=== PATIENT | female | born 1960 | race African-American/Black ===

== ENCOUNTER 2017-11-09 13:08 | Emergency (ER) | payer BC ==
[~2017-11-09] VITALS: Ht 170.2 cm; Wt 85.7 kg
[~2017-11-09 13:08] MED LIST: ASPIR 8181 MG PO; COREG3.125 MG PO; COZAAR50 MG PO; GLUCOTROL10 MG PO; IMDUR30 MG PO
[2017-11-09 16:12] VITALS: BP 160/90
== END 2017-11-09 14:50 | disposition home or self-care (01) ==
LOC: FSED 13:08
DX: B34.9 Viral infection, unspecified (principal); I10 Essential (primary) hypertension
CPT/HCPCS: 83518; 87400; 99283

== ENCOUNTER 2019-04-03 20:12 | Emergency (ER) | payer BC ==
[~2019-04-03] VITALS: Ht 170.2 cm; Wt 85.7 kg
[2019-04-03] MEDS ORDERED: SODIUM CHLORIDE 0.9% 1000ML 3,000 ML ONE (20:32)
[2019-04-03 20:40] LABS: BASOPHILS % 0.5 % (0.0-1.0); EOSINOPHILS # (AUTO) 0.1 (0.0-0.4); EOSINOPHILS % 2.2 % (0.0-6.0); HEMATOCRIT 42.3 % (34.2-44.1); HEMOGLOBIN 13.7 g/dL (12.0-16.0); LYMPHOCYTES # (AUTO) 2.7 (1.0-3.2); MEAN CORPUSCULAR HEMOGLOBIN 29.3 pg (28-32); MEAN CORPUSCULAR HGB CONC 32.4 g/dL (31-35); MEAN CORPUSCULAR VOLUME 90.4 fL (81-99); MONOCYTES # (AUTO) 0.7 (0.2-0.8); MONOCYTES % 10.7 % (4.4-11.3); NEUTROPHILS # (AUTO) 2.8 (2.1-6.9); NEUTROPHILS % 44.3 % (38.7-80.0); PLATELET COUNT 257 x10e3/uL (140-360); RED BLOOD COUNT 4.68 x10e6/uL (3.6-5.1); RED CELL DISTRIBUTION WIDTH 12.1 % (11.7-14.4)
[2019-04-03] MEDS ORDERED: ADENOSINE 6MG/2ML 3 ML ONE (20:40)
[2019-04-03 20:44] LABS: INR 0.91; PARTIAL THROMBOPLASTIN TIME 27.5 seconds (23.8-35.5); PROTHROMBIN TIME 12.8 seconds (11.9-14.5)
[2019-04-03 21:25] LABS: ALANINE AMINOTRANSFERASE 20 IU/L (0-55); ALBUMIN 3.8 g/dL (3.5-5.0); ALBUMIN/GLOBULIN RATIO 1.2 (0.8-2.0); ALKALINE PHOSPHATASE 72 IU/L (40-150); ANION GAP 14.9 mmol/L (8-16); BLOOD UREA NITROGEN 11 mg/dL (7-26); BUN/CREATININE RATIO 11 (6-25); CALCIUM 9.4 mg/dL (8.4-10.2); CARBON DIOXIDE 23 mmol/L (22-29); CHLORIDE 100 mmol/L (98-107); CREATINE KINASE 48 IU/L (29-168); CREATININE, SERUM 1.03 mg/dL (0.57-1.11); EST GLOMERULAR FILTRATION RATE > 60 ML/MIN (60-); POTASSIUM 3.9 mmol/L (3.5-5.1); SODIUM 134 mmol/L (136-145)
[2019-04-03 21:27] LABS: GLUCOSE 561 mg/dL (74-118)
[2019-04-03] MEDS ORDERED: SODIUM CHLORIDE 0.9% 1000ML 1,000 ML IV SCH ×3 (21:45)
[2019-04-03] MEDS ORDERED: ADENOSINE 6 MG/2 ML VIAL IV ONE (21:45)
--- NOTE | 2019-04-03 22:09 | Diagnostic Imaging Report ---
EXAMINATION: CHEST 2 VIEWS INDICATION: Chest pain and palpitations ^CP ^[id number] ^[id number] COMPARISON: None FINDINGS: PA and lateral views TUBES and LINES: None. LUNGS: Lungs are well inflated. There is no evidence of pneumonia or pulmonary edema. PLEURA: No pleural effusion or pneumothorax. HEART AND MEDIASTINUM: The cardiomediastinal silhouette is unremarkable.. BONES AND SOFT TISSUES: No focal osseous lesions. Soft tissues are unremarkable. UPPER ABDOMEN: Unremarkable. IMPRESSION: No acute thoracic abnormality. Signed by: Dr. Catrachito Mondragon MD on 04/03/2019 10:07 PM
[2019-04-03] MEDS ORDERED: DILTIAZEM HCL 5 MG/ML 5 ML VIAL IV STA (23:08)
[2019-04-03 23:35] VITALS: BP 151/90
== END 2019-04-03 23:52 | disposition home or self-care (01) ==
LOC: ER 20:12
DX: R00.2 Palpitations (principal); I48.91 Unspecified atrial fibrillation; I47.1 Supraventricular tachycardia
CPT/HCPCS: 36415; 71046; 80053; 82550; 82553; 82948; 84484; 85025; 85610; 85730; 93005; 99284; J0153; J7030

== ENCOUNTER 2019-10-15 14:04 | Emergency (ER) | payer BC ==
[~2019-10-15] VITALS: Ht 170.2 cm; Wt 76.2 kg
[2019-10-15] MEDS ORDERED: FAMOTIDINE 20 MG/2 ML VIAL IV STA (14:28)
[2019-10-15] MEDS ORDERED: SODIUM CHLORIDE 0.9% 1000ML 1,000 ML IV SCH (14:30)
[2019-10-15] MEDS ORDERED: SODIUM CHLORIDE 0.9% 1000ML 1,000 ML ONE (14:53)
[2019-10-15] MEDS ORDERED: FAMOTIDINE 20 MG/2 ML VIAL IV ONE (14:53)
[2019-10-15] MEDS ORDERED: ZOFRAN4 MG PO (15:26)
--- NOTE | 2019-10-15 15:51 | Emergency Department Note ---
History of Present Illnes History of Present Illness Chief Complaint: Abdominal Complaints History of Present Illness This is a 59 year old female with 2 days of N/V/D. Patient was non compliant with medications, but restarted taking them last week due to feeling "sluggish". No fever/chills. No diarrhea. last BM yest WNL. No hematemesis, melena, hematachezia. No sick contacts. No well water. No recent camping. No recent antibiotics. No cough, decreased taste/smell. Has never been tested for COVID. Admit in [facility] for palpitations and UTI. Botany Technician Required: No Onset (how long ago): day(s) Location: LUQ abd pain, onset after vomiting started and mostly only during emesis Quality: dull Severity: unable to specify Onset quality: gradual Duration (how long): day(s) Timing of current episode: intermittent Context: Denies trauma/injury Relieving factors: none Exacerbating factors: none Associated symptoms: Reports nausea/vomiting; Denies chest pain, Denies cough, Denies diaphoresis, Denies fever/chills, Denies malaise Past Medical/Family History Physician Review I have reviewed the patient's past medical and family history. Any updates have been documented here. Past Medical History Past Medical History: Hypertension, Diabetes, Hyperlipedemia Other Surgery: BREAST BIOPSY Social History Any Illegal Drug Use: No Other Last Tetanus: > 5 YEARS Review of Systems Review of Systems Constitutional: Reports no symptoms EENTM: Reports no symptoms Cardiovascular: Reports no symptoms Respiratory: Denies cough, Denies pain with cough, Denies dyspnea Gastrointestinal: Reports abdominal pain, Reports nausea, Reports vomiting Genitourinary: Reports no symptoms Musculoskeletal: Reports no symptoms Neurological: Reports no symptoms Psychological: Reports no symptoms Endocrine: Reports no symptoms Hematological/Lymphatic: Reports no symptoms Physical Exam Related Data Allergies: Coded Allergies: codeine (Verified Allergy, Unknown, 11/09/17) iodine (Verified Allergy, Unknown, 11/09/17) Physical Exam CONSTITUTIONAL Constitutional: Present well-developed, Present well-nourished HENT HENT: Present normocephalic, Present atraumatic, Present mucosae dry, Present nose normal HENT L/R: Present left ext ear normal, Present right ext ear normal EYES Eyes: Reports PERRL, Reports conjunctivae normal NECK Neck: Present ROM normal PULMONARY Pulmonary: Present effort normal, Present breath sounds normal CARDIOVASCULAR Cardiovascular: Present regular rhythm, Present heart sounds normal, Present capillary refill normal, Present normal rate GASTROINTESTINAL Abdominal: Present soft, Present nontender, Present bowel sounds normal, Present other (No psoas, no illiac, negative Faith's); Absent distension, Absent tender, Absent guarding, Absent rebound, Absent left CVA tenderness, Absent right CVA tenderness GENITOURINARY SKIN Skin: Present warm, Present dry MUSCULOSKELETAL Musculoskeletal: Present ROM normal NEUROLOGICAL Neurological: Present alert, Present oriented x 3, Present no gross motor or sensory deficits PSYCHOLOGICAL Psychological: Present mood/affect normal, Present judgement normal Results Laboratory Laboratory comments WBC 5.8, HGB 13.6, HCT 41.5, PLT 160. CMP: Glu 216, Cl 98 - otherwise normal. Troponin <0.05. UA: Glu 500, small bautista, Ket 50, trace blood, ph 5.5, pro 100, uro 2.0, nit neg, sandy neg Procedures 12 Lead ECG Interpretation ECG Interpretation : ECG: ECG 1 Botany Technician: Interpreted by ED physician Prior ECG tracings: reviewed Rhythm: sinus rhythm Rate: normal BPM: 91 QRS axis: normal Clinical Impression: abnormal ECG Additional Comments PAC's Assessment & Plan Medical Decision Making MDM Differential dx includes, but is not limited to: Gastroenteritis (viral, bacterial, parasite, protozoal), VT/ACS, DKA, appendicitis, gallstone. Sx resolved with IVF and pepcid. Gave strict return precautions and patient will establish PCP for prompt f/u. Reassessment Reassessment time: 15:39 Reassessment Sx resolved. No vomiting in ED. (declined zofran during stay). No abd pain, abd non-tender. Assessment & Plan Final Impression: (1) Volume depletion (2) Dehydration (3) Hypovolemia (4) Nausea & vomiting (5) Diabetes (6) Hypertension (7) Hyperglycemia Depart Disposition: HOME, SELF-[facility] Meds Active Scripts Ondansetron Hcl* (ZOFRAN*) 4 Mg Tablet, 4 MG PO Q6HR PRN for NAUSEA, #10 Prov:NAHUM LEE MD 10/15/19 Reported Medications Aspirin (ASPIR 81) 81 Mg Tablet.dr, 81 MG PO QAM 07/09/13 Losartan Potassium (COZAAR) 50 Mg Tab, 50 MG PO QPM 07/09/13 Glipizide (GLUCOTROL) 10 Mg Tablet, 10 MG PO QAM 07/09/13 Isosorbide Mononitrate (IMDUR) 30 Mg Tabcr, 30 MG PO QAM 07/09/13 Carvedilol (COREG) 3.125 Mg Tab, 3.125 MG PO BID 07/09/13 Medications in the ED HOWARD Rowe RICHARD W MD Oct 15, 2019 14:38
[2019-10-15 16:09] VITALS: BP 131/74
--- OUTSIDE RECORDS SUMMARY | 2019-10-15 16:33 | XMS REPORT | Continuity of Care Document ---
Author Author [facility] t Organization [facility] Address [address] [place] [address] Phone Unavailable Care Team Providers Care Black Leather Trimmer Name Role Phone NO, PCP PCP Unavailable DARREN STOREY Unavailable Payers Payer Name Policy Type Policy Number Effective Date Expiration Date S neri [employer] [facility] [id number] 2017 00:00:00 [facility] Problems This patient has no known problems. Allergies, Adverse Reactions, Alerts Allergy Name Allergy Type Status Severity Reaction(s) Onset Date Inacti ve Date Treating Clinician Comments Source iodine Allergy to Substance Active 2017-11-09 00:00:00 [facility] Codeine Allergy to Substance Active 2017-11-09 00:00:00 [facility] iodine DA Active U 2008-09-08 00:00:00 [facility] codeine DA Active U 2008-09-08 00:00:00 [facility] Medications Ordered Medication Name Filled Medication Name Start Date Stop Da te Current Medication? Ordering Clinician Indication Dosage Frequency Signature (SIG) Comments Components Source Aspirin (Aspir 81) 81 Mg Tablet. Aspirin (Aspir 81) 81 Mg Tablet. Yes 81 Every Morning [facility] Carvedilol (Coreg) 3.125 Mg Tab Carvedilol (Coreg) 3.125 Mg Tab Yes 3.125 Twice A Day [facility] Glipizide (Glucotrol) 10 Mg Tablet Glipizide (Glucotrol) 10 Mg Tablet Yes 10 Every Morning [facility] Isosorbide Mononitrate (Imdur) 30 Mg Tabcr Isosorbide Mononitrate (Imdur) 30 Mg Tabcr Yes 30 Every Morning [facility] Losartan Potassium (Cozaar) 50 Mg Tab Losartan Potassium (Cozaar) 5 0 Mg Tab Yes 50 Every Evening [facility] Procedures Procedure Date / Time Performed Performing Clinician [facility] e X-ray of chest, two views 2019-04-03 00:00:00 DARREN STOREY I [facility] Encounters Start Date/Time End Date/Time Encounter Type Admission Type [facility] Care Department Encounter ID Source 2019-04-03 20:12:00 2019-04-03 23:52:00 Departed Emergency Room 1 DARREN STOREY [facility] [id number] [facility] 2017-11-09 13:08:00 2017-11-09 14:50:00 Departed Emergency Room [facility] [id number] [facility] Results Test Description Test Time Test Comments Results Result Comments Source GLUBED 2019-08-03 11:43:00 Test Item GLUBED (test code = GLUBED) 184 mg/dL 74-106 H Performed by certified telephone switchboard operator at [facility] [id number] 07:26:00* Test Item Value Reference Range Interpretation Comments GLUBED (test code = GLUBED) 130 mg/dL 74-106 H Performed by certified telephone switchboard operator at [facility] [id number] 21:09:00* Test Item Value Reference Range Interpretation Comments GLUBED (test code = GLUBED) 231 mg/dL 74-106 H Performed by certified telephone switchboard operator at [facility] [id number] 15:58:00* Test Item Value Reference Range Interpretation Comments GLUBED (test code = GLUBED) 269 mg/dL 74-106 H Performed by certified telephone switchboard operator at [facility] [id number] 14:23:00* Test Item Value Reference Range Interpretation Comments GLYCOSYLATED HEMOGLOBIN (HA1C) (test code = GLYHGB) 12.8 % HbA1 SUGGESTED DIAGNOSIS: HbA1C (%) Diabetic >6.4Prediabetes 5.7 - 6.4Normal <5.7 ESTIMATED AVERAGE GLUCOSE (test code = EAG) 321 MG/DL THYROID STIMULATING [id number] 14:18:00* Test Item Value Reference Range Interpretation Comments THYROID STIMULATING HORMONE (test code = TSH) 0.890 uIU/mL 0.36-3.7 4 N TSH REFERENCE RANGES: EUTHYROID: 0.35 - 4.3 mIU/mL HYPO : > 5.5 mIU/mL HYPER : < 0.35 mIU/mL [id number] 13:15:00* Test Item Value Reference Range Interpretation Comments TROPONIN-I (test code = TROPI) 0.122 ng/mL 0-0.045 COMMENTS TO ETL ARCHITECT: COLLECT 3 HOURS AFTER PREVIOUS [id number] 11:54:00* Test Item Value Reference Range Interpretation Comments GLUBED (test code = GLUBED) 207 mg/dL 74-106 H Performed by certified telephone switchboard operator at [facility] [id number] 09:58:00* Test Item Value Reference Range Interpretation Comments TROPONIN-I (test code = TROPI) 0.150 ng/mL 0-0.045 HH COMMENTS TO ETL ARCHITECT: COLLECT 3 HOURS AFTER PREVIOUS SAMPLEBASIC METABOLIC [id number] 09:57:00* Test Item Value Reference Range Interpretation Comments SODIUM (test code = NA) 138 mmol/L 136-145 N POTASSIUM (test code = K) 3.8 mmol/L 3.5-5.1 N CHLORIDE (test code = CL) 105.0 mmol/L 98-107 N CARBON DIOXIDE (test code = CO2) 27.0 mmol/L 21-32 N ANION GAP (test code = GAP) 9.8 10-20 L GLUCOSE (test code = GLU) 231 mg/dL 74-106 H BLOOD UREA NITROGEN (test code = BUN) 15 mg/dL 7-18 N GLOMERULAR FILTRATION RATE (test code = GFR) > 60 mL/min >=60 Estimated GFR by using Modified MDRD formula.Chronic kidney disease is defined as either kidney damageor GFR <60 mL/min/1.73 m2 for >3 months. CREATININE (test code = CREAT) 0.60 mg/dL 0.55-1.02 N Note change in reference range due to change in reagent. BUN/CREATININE RATIO (test code = BUN/CREA) 25.0 10-20 H CALCIUM (test code = CA) 8.6 mg/dL 8.5-10.1 N LIPID PROFILE (CORONARY RISK)2019-08-02 09:57:00* Test Item Value Reference Range Interpretation Comments TRIGLYCERIDES (test code = TRIG) 80 mg/dL 20-150 N CHOLESTEROL (test code = CHOL) 136 mg/dL 0-200 N CHOLESTEROL/HDL RATIO (test code = CHOLHDL) 3.0 RATIO 0-4.9 N RISK ASSOCIATED WITH CHOL/HDL RATIOS: Risk Male Female1/2 AVERAGE 3.43 3.27AVERAGE 4.97 4.442X AVERAGE 9.55 7.053X AVERAGE 23.39 11.04 REFERENCE VALUE IS RELATED TO RISK LEVELS ASRECOMMENDED BY THE HUONG. HEART, LUNG, AND BLOOD INST. HDL CHOLESTEROL (test code = HDL) 37 mg/dL 40-60 L LIPOPROTEIN LDL (test code = LDL) 90 mg/dL 100-129 L Reference Interval: mg/dL mmol/L Optimal <100 <2.6Near/above optimal 100-129 2.6- 3.3Borderline High 130-159 3.4-4.1High 160-189 4.1-4.9Very High >=190 >=4.9========= This LDL result is a direct measurement.========= [id number] 09:57:00* Test Item Value Reference Range Interpretation Comments MAGNESIUM (test code = MAG) 1.9 mg/dL 1.8-2.4 N BASIC METABOLIC [id number] 09:49:00* Test Item Value Reference Range Interpretation Comments SODIUM (test code = NA) 138 mmol/L 136-145 N POTASSIUM (test code = K) 3.8 mmol/L 3.5-5.1 N CHLORIDE (test code = CL) 105.0 mmol/L 98-107 N CARBON DIOXIDE (test code = CO2) mmol/L 21-32 ANION GAP (test code = GAP) 10-20 GLUCOSE (test code = GLU) mg/dL 74-106 BLOOD UREA NITROGEN (test code = BUN) mg/dL 7-18 GLOMERULAR FILTRATION RATE (test code = GFR) mL/min >=60 CREATININE (test code = CREAT) mg/dL 0.55-1.02 BUN/CREATININE RATIO (test code = BUN/CREA) 10-20 CALCIUM (test code = CA) mg/dL 8.5-10.1 LIPID PROFILE (CORONARY RISK)2019-08-02 09:49:00* Test Item Value Reference Range Interpretation Comments TRIGLYCERIDES (test code = TRIG) mg/dL 20-150 CHOLESTEROL (test code = CHOL) mg/dL 0-200 CHOLESTEROL/HDL RATIO (test code = CHOLHDL) RATIO 0-4.9 HDL CHOLESTEROL (test code = HDL) mg/dL 40-60 LIPOPROTEIN LDL (test code = LDL) mg/dL 100-129 [id number] 09:49:00* Test Item Value Reference Range Interpretation Comments MAGNESIUM (test code = MAG) mg/dL 1.8-2.4 CBC W/AUTO [id number] 09:21:00* Test Item Value Reference Range Interpretation Comments WHITE BLOOD CELL (test code = WBC) 5.6 K/mm3 4.5-12.5 N RED BLOOD CELL (test code = RBC) 4.24 mill/mm3 3.7-5.2 N HEMOGLOBIN (test code = HGB) 12.6 gram/dL 11.5-15.5 N HEMATOCRIT (test code = HCT) 37.6 % 36.0-46.0 N MEAN CELL VOLUME (test code = MCV) 88.7 fL 80-98 N MEAN CELL HGB (test code = MCH) 29.7 picogram 27.0-33.0 N MEAN CELL HGB CONCETRATION (test code = MCHC) 33.5 gram/dL 33.0-36. 0 N RED CELL DISTRIBUTION WIDTH (test code = RDW) 11.9 % 11.6-16. 2 N RED CELL DISTRIBUTION WIDTH SD (test code = RDW-SD) 38.2 fL 37 .0-51.0 N PLATELET COUNT (test code = PLT) 207 K/mm3 150-450 N MEAN PLATELET VOLUME (test code = MPV) 11.4 fL 6.7-11.0 H NEUTROPHIL % (test code = NT%) 40.4 % 39.0-69.0 N IMMATURE GRANULOCYTE % (test code = IG%) 0.2 % 0.0-5.0 N LYMPHOCYTE % (test code = LY%) 46.0 % 25.0-55.0 N MONOCYTE % (test code = MO%) 11.2 % 0.0-10.0 H EOSINOPHIL % (test code = EO%) 1.8 % 0.0-5.0 N BASOPHIL % (test code = BA%) 0.4 % 0.0-1.0 N NUCLEATED RBC % (test code = NRBC%) 0.0 % 0-0 N NEUTROPHIL # (test code = NT#) 2.28 K/mm3 1.8-7.7 N IMMATURE GRANULOCYTE # (test code = IG#) 0.01 x10 3/uL 0-0.03 N LYMPHOCYTE # (test code = LY#) 2.59 K/mm3 1.0-5.0 N MONOCYTE # (test code = MO#) 0.63 K/mm3 0-0.8 N EOSINOPHIL # (test code = EO#) 0.10 K/mm3 0.0-0.5 N BASOPHIL # (test code = BA#) 0.02 K/mm3 0.0-0.2 N NUCLEATED RBC # (test code = NRBC#) 0.00 K/mm3 0.0-0.1 N DRUGS OF ABUSE SCREEN [id number] 07:53:00* Test Item Value Reference Range Interpretation Comments UA PH DIPSTICK (test code = EDI) 5.5 5.0-8.0 URN COCAINE (test code = COCAURN) NEGATIVE <300 ng/mL URN CANNABINOIDS (test code = CANNABURN) NEGATIVE <50 ng/mL URN AMPHETAMINE (test code = AMPHETURN) NEGATIVE <1000 ng/mL URN BARBITURATE (test code = BARBITURN) NEGATIVE <200 ng/mL URN BENZODIAZEPINE (test code = BENZOURN) NEGATIVE <200 ng/mL URN OPIATES (test code = OPIATURN) NEGATIVE <300 ng/mL URN PHENCYCLIDINE (PCP) (test code = PHENCURN) NEGATIVE <25 ng/ mL URN METHADONE (test code = METHAURN) NEGATIVE <300 ng/mL DRUGS OF ABUSE SCREEN [id number] 07:06:00* Test Item Value Reference Range Interpretation Comments UA PH DIPSTICK (test code = EDI) 5.5 5.0-8.0 URN COCAINE (test code = COCAURN) <300 ng/mL URN CANNABINOIDS (test code = CANNABURN) <50 ng/mL URN AMPHETAMINE (test code = AMPHETURN) <1000 ng/mL URN BARBITURATE (test code = BARBITURN) <200 ng/mL URN BENZODIAZEPINE (test code = BENZOURN) <200 ng/mL URN OPIATES (test code = OPIATURN) <300 ng/mL URN PHENCYCLIDINE (PCP) (test code = PHENCURN) <25 ng/ mL URN METHADONE (test code = METHAURN) <300 ng/mL [id number] 05:26:00* Test Item Value Reference Range Interpretation Comments GLUBED (test code = GLUBED) 267 mg/dL 74-106 H Performed by certified telephone switchboard operator at [facility] HEPATIC FUNCTION [id number] 01:53:00* Test Item Value Reference Range Interpretation Comments TOTAL PROTEIN (test code = PROT) 7.5 gram/dL 6.4-8.2 N ALBUMIN (test code = ALB) 3.3 g/dL 3.4-5.0 L GLOBULIN (test code = GLOB) 4.2 gram/dL 2.7-4.2 N ALBUMIN/GLOBULIN RATIO (test code = A/G) 0.8 0.75-1.50 N BILIRUBIN TOTAL (test code = BILT) 0.40 mg/dL 0.0-1.0 N BILIRUBIN DIRECT (test code = BILD) 0.16 mg/dL 0.0-0.20 N SGOT/AST (test code = AST) 16 IUnit/L 15-37 N SGPT/ALT (test code = ALT) 28 IUnit/L 12-78 N ALKALINE PHOSPHATASE TOTAL (test code = ALKP) 63 IUnit/L 45-117 N Note change in reference range due to change in reagent. [id number] 01:53:00* Test Item Value Reference Range Interpretation Comments MAGNESIUM (test code = MAG) 1.9 mg/dL 1.8-2.4 N TSH REFLEX TO [id number] 01:53:00* Test Item Value Reference Range Interpretation Comments TSH REFLEX TO FT4 (test code = TSHREFLEX) 0.4 0.4-5.5 N PROTHROMBIN [id number] 01:18:00* Test Item Value Reference Range Interpretation Comments PROTHROMBIN TIME PATIENT (test code = PTP) 12.3 seconds 9.0-14.0 N INTERNATIONAL NORMAL RATIO (test code = INR) 1.1 0.8-1.2 N The therapeutic range for oral anticoagulant therapy formost indications is an international normalized ratio (INR)of between 2.0 and 3.0. The recommended therapeutic INRrange for various clinical situations is listed below: Clinical Situation INR range Pulmonary e mbolism treatment (2.0-3.0)Venous thrombosis treatmentVenous thrombosis prophylaxis (high risk surgery)Prevention of systemic embolism from: Acute myocardial infarction Valvular heart disease Atrial fibrillation Mechanical prosthetic heart valves (2.5-3.5) IS PATIENT ON ANTICOAGULANTS? NTHROMBOPLASTIN TIME [id number] 01:18:00* Test Item Value Reference Range Interpretation Comments THROMBOPLASTIN TIME PARTIAL (test code = PTT) 26.7 seconds 23.0-37. 0 N IS PATIENT ON ANTICOAGULANTS? [id number] 01:17:00* Test Item Value Reference Range Interpretation Comments GLYCOSYLATED HEMOGLOBIN (HA1C) (test code = GLYHGB) 12.3 % HbA1 SUGGESTED DIAGNOSIS: HbA1C (%) Diabetic >6.4Prediabetes 5.7 - 6.4Normal <5.7 ESTIMATED AVERAGE GLUCOSE (test code = EAG) 306 MG/DL BASIC METABOLIC [id number] 21:24:00* Test Item Value Reference Range Interpretation Comments SODIUM (test code = NA) 138 mmol/L 136-145 N POTASSIUM (test code = K) 4.0 mmol/L 3.5-5.1 N CHLORIDE (test code = CL) 106.0 mmol/L 98-107 N CARBON DIOXIDE (test code = CO2) 28.0 mmol/L 21-32 N ANION GAP (test code = GAP) 8.0 10-20 L GLUCOSE (test code = GLU) 293 mg/dL 74-106 H BLOOD UREA NITROGEN (test code = BUN) 19 mg/dL 7-18 H GLOMERULAR FILTRATION RATE (test code = GFR) > 60 mL/min >=60 Estimated GFR by using Modified MDRD formula.Chronic kidney disease is defined as either kidney damageor GFR <60 mL/min/1.73 m2 for >3 months. CREATININE (test code = CREAT) 0.80 mg/dL 0.55-1.02 N Note change in reference range due to change in reagent. BUN/CREATININE RATIO (test code = BUN/CREA) 24.2 10-20 H CALCIUM (test code = CA) 8.9 mg/dL 8.5-10.1 N [id number] 21:24:00* Test Item Value Reference Range Interpretation Comments TROPONIN-I (test code = TROPI) 0.112 ng/mL 0-0.045 Results called to [id number] by [email or web address].SPR 08/01/19 2124Critical results verified and read back by Nurse? Y BASIC METABOLIC [id number] 21:09:00* Test Item Value Reference Range Interpretation Comments SODIUM (test code = NA) 138 mmol/L 136-145 N POTASSIUM (test code = K) 4.0 mmol/L 3.5-5.1 N CHLORIDE (test code = CL) 106.0 mmol/L 98-107 N CARBON DIOXIDE (test code = CO2) mmol/L 21-32 ANION GAP (test code = GAP) 10-20 GLUCOSE (test code = GLU) mg/dL 74-106 BLOOD UREA NITROGEN (test code = BUN) mg/dL 7-18 GLOMERULAR FILTRATION RATE (test code = GFR) mL/min >=60 CREATININE (test code = CREAT) mg/dL 0.55-1.02 BUN/CREATININE RATIO (test code = BUN/CREA) 10-20 CALCIUM (test code = CA) 8.9 mg/dL 8.5-10.1 N [id number] 21:09:00* Test Item Value Reference Range Interpretation Comments TROPONIN-I (test code = TROPI) ng/mL 0-0.045 URINALYSIS [id number] 21:09:00* Test Item Value Reference Range Interpretation Comments UA COLOR (test code = COLU) Light-Yellow YELLOW UA APPEARANCE (test code = APPU) Cloudy CLEAR A UA GLUCOSE DIPSTICK (test code = DGLUU) >1000 (4+) mg/dL NEGATIVE UA BILIRUBIN DIPSTICK (test code = BILU) NEGATIVE mg/dL NEGATIVE UA KETONE DIPSTICK (test code = KETU) 40 (2+) mg/dL NEGATIVE A UA SPECIFIC GRAVITY (test code = SGU) 1.034 1.001-1.035 UA BLOOD DIPSTICK (test code = AZALEA) Negative mg/dL NEGATIVE UA PH DIPSTICK (test code = EDI) 5.5 5.0-8.0 UA PROTEIN DIPSTICK (test code = PROU) 20 (Trace) mg/dL NEGATIVE A UA UROBILINIOGEN DIPSTICK (test code = URO) Normal mg/dL NEGATIVE UA NITRITE DIPSTICK (test code = MAYRA) NEGATIVE NEGATIVE UA LEUKOCYTE ESTERASE W REFLEX (test code = LEUUR) 75 Gordon/uL (1+) Gordon/uL NEGATIVE A UA WBC (test code = WBCU) 51-100 per HPF 0-5 A UA RBC (test code = RBCU) 3-5 #/HPF 0-5 UA WBC CLUMPS (test code = WBCUCL) 3-6 /HPF NONE A UA EPITHELIAL CELLS (test code = EPIU) MOD per HPF FEW UA BACTERIA (test code = BACU) MANY #/HPF NONE A UA MUCUS (test code = MUCU) FEW #/LPF FEW UA AMORPHOUS SEDIMENT (test code = AMORU) FEW #/LPF NONE Urine Source? Clean CatchBASIC METABOLIC [id number] 21:08:00* Test Item Value Reference Range Interpretation Comments SODIUM (test code = NA) 138 mmol/L 136-145 N POTASSIUM (test code = K) 4.0 mmol/L 3.5-5.1 N CHLORIDE (test code = CL) 106.0 mmol/L 98-107 N CARBON DIOXIDE (test code = CO2) mmol/L 21-32 ANION GAP (test code = GAP) 10-20 GLUCOSE (test code = GLU) mg/dL 74-106 BLOOD UREA NITROGEN (test code = BUN) mg/dL 7-18 GLOMERULAR FILTRATION RATE (test code = GFR) mL/min >=60 CREATININE (test code = CREAT) mg/dL 0.55-1.02 BUN/CREATININE RATIO (test code = BUN/CREA) 10-20 CALCIUM (test code = CA) mg/dL 8.5-10.1 [id number] 21:08:00* Test Item Value Reference Range Interpretation Comments TROPONIN-I (test code = TROPI) ng/mL 0-0.045 CBC W/O [id number] 20:52:00* Test Item Value Reference Range Interpretation Comments WHITE BLOOD CELL (test code = WBC) 6.8 K/mm3 4.5-12.5 N RED BLOOD CELL (test code = RBC) 4.47 mill/mm3 3.7-5.2 N HEMOGLOBIN (test code = HGB) 13.5 gram/dL 11.5-15.5 N HEMATOCRIT (test code = HCT) 40.7 % 36.0-46.0 N MEAN CELL VOLUME (test code = MCV) 91.1 fL 80-98 N MEAN CELL HGB (test code = MCH) 30.2 picogram 27.0-33.0 N MEAN CELL HGB CONCETRATION (test code = MCHC) 33.2 gram/dL 33.0-36. 0 N RED CELL DISTRIBUTION WIDTH (test code = RDW) 12.1 % 11.6-16. 2 N PLATELET COUNT (test code = PLT) 233 K/mm3 150-450 N MEAN PLATELET VOLUME (test code = MPV) 11.5 fL 6.7-11.0 H - XR CHEST 1 [id number] 18:39:00 FAX: Eduardo Johnson DO [place]: B St: REG Name: BAILEE GODINEZ [facility] : [birth year] Age/S: 59/F [address] Unit #: [id number] Loc: [place] [address] Phys: Eduardo Johnson DO Acct: [id number] Dis Date: Status: REG ER PHONE #: [phone] Exam Date: 08/01/20191826 FAX #: [phone] Reason: CHEST PAIN EXAMS: CPT CODE: [id number] XR CHEST 1 V [id number] EXAM: Chest X-ray, 1 view; CLINICAL HISTORY: Chest pain; FINDINGS: The lungs are clear, no infiltrates, no edema; no effusions; no pneumothorax; n ormal cardiomediastinal silhouette. IMPRESSION: Normal chest x-ray. Location code: [facility] Signed by Azra Maier on 08/01/2019 pat gunter 1838 Reported and signed by: Felipe Alexis ch, M.D. CC: Eduardo Johnson DO Technologist: Ángela Tobar) Trnscrd Date/Time/By: 08/01/2019 (1838) : By: Skyler Orig Print D/T: S: 08/01/2019 (1841) PAGE 1 Signed Report CHEST 2 [id number] 22:04:00 [place] [id number] Patient Name: BAILEE MARCUM MR #: [id number] : 1960 Age/Sex: 59/F Req #: [id number] Adm Physician: Ordered by: DARREN STOREY DO Report #: [id number] Location: ER Room/Bed: Procedure: [id number] 2 DX/CHEST 2 VIEWS Exam Date: 04/03/19 Exam Time: 45 REPORT STATUS: Signed EXAMINA TION: CHEST 2 VIEWS INDICATION: Chest pain and palpitations [id number] COMPARISON: None FINDINGS: PA and lateral view s TUBES and LINES: None. LUNGS: Lungs are well inflated. There is n o evidence of pneumonia or pulmonary edema. PLEURA: No pleural effusion or pneumothorax. HEART AND MEDIASTINUM: The cardiomediastinal silhouette i s unremarkable.. BONES AND SOFT TISSUES: No focal osseous lesions. Sof t tissues are unremarkable. UPPER ABDOMEN: Unremarkable. IMPRESSION : No acute thoracic abnormality. Signed by: Dr. Nessa Mondragon MD on 04/03/2019 10:07 PM Dictated By: NESSA MONDRAGON MD 06 Transcribed By: ALIN on 2206 COPY TO: DARREN STOREY DO Creatine Kinase MB 2019-04-03 21:32:00* Test Item Value Reference Range Interpretation Comments Creatine Kinase MB (test code = 81391-7) 0.90 0-5.0 [facility] [id number] 21:32:00* Test Item Value Reference Range Interpretation Comments Troponin I (test code = UVJ2544) < 0.001 0-0.300 [facility] [id number] 21:27:00* Test Item Value Reference Range Interpretation Comments Sodium Level (test code = 2951-2) 134 136-145 L [facility]Potassium [id number] 21:27:00* Test Item Value Reference Range Interpretation Comments Potassium Level (test code = 2823-3) 3.9 3.5-5.1 [facility] TexasChloride [id number] 21:27:00* Test Item Value Reference Range Interpretation Comments Chloride Level (test code = 2075-0) 100 98-107 [facility] TexasCarbon Dioxide [id number] 21:27:00* Test Item Value Reference Range Interpretation Comments Carbon Dioxide Level (test code = 2028-9) 23 22-29 [facility] TexasAnion [id number] 21:27:00* Test Item Value Reference Range Interpretation Comments Anion Gap (test code = 93222-6) 14.9 8-16 [facility] TexasBlood Urea [id number] 21:27:00* Test Item Value Reference Range Interpretation Comments Blood Urea Nitrogen (test code = 3094-0) 11 7-26 [facility] TexasCreatinine2020-02-18 21:27:00* Test Item Value Reference Range Interpretation Comments Creatinine (test code = 2160-0) 1.03 0.57-1.11 [facility] TexasBUN/Creatinine [id number] 21:27:00* Test Item Value Reference Range Interpretation Comments BUN/Creatinine Ratio (test code = 3097-3) 11 6-25 [facility] TexasEstimat Glomerular Filtration Rate 2019-04-03 21:27:00* Test Item Value Reference Range Interpretation Comments Estimat Glomerular Filtration Rate (test code = 196599794) > 60 >60 Ranges were taken from the National Kidney Disease Education Program and the [facility] [employer] literature.Reference ranges:60 or greater: Ikepis60-37 ( for 3 consecutive months): Chronic kidney disease 15 or less: Kidney failureBaptist Hospitals of Southeast TexasGlucose [id number] 21:27:00* Test Item Value Reference Range Interpretation Comments Glucose Level (test code = JCI3877) 561 74-118 Results repeated and called to at 2126 on 04/03/19 by Susan Bennett. Read b ack and verified.[facility] TexasCalcium [id number] 21:27:00* Test Item Value Reference Range Interpretation Comments Calcium Level (test code = 11940-7) 9.4 8.4-10.2 [facility] TexasTotal [id number] 21:27:00* Test Item Value Reference Range Interpretation Comments Total Bilirubin (test code = 1975-2) 0.3 0.2-1.2 [facility] TexasAspartate Amino Transf (AST/SGOT) 2019-04-03 21:27:00* Test Item Value Reference Range Interpretation Comments Aspartate Amino Transf (AST/SGOT) (test code = Aspartate Amino Transf (AST/SGOT)) 15 5-34 [facility] TexasAlanine Aminotransferase (ALT/SGPT) 2019-04-03 21:27:00* Test Item Value Reference Range Interpretation Comments Alanine Aminotransferase (ALT/SGPT) (test code = 1742-6) 20 0-55 [facility] [id number] 21:27:00* Test Item Value Reference Range Interpretation Comments Total Protein (test code = 2885-2) 7.0 6.5-8.1 [facility] TexasAlbumin2020-02-18 21:27:00* Test Item Value Reference Range Interpretation Comments Albumin (test code = 1751-7) 3.8 3.5-5.0 [facility] TexasGlobulin2020-02-18 21:27:00* Test Item Value Reference Range Interpretation Comments Globulin (test code = 34174-7) 3.2 2.3-3.5 [facility] TexasAlbumin/Globulin [id number] 21:27:00 * Test Item Value Reference Range Interpretation Comments Albumin/Globulin Ratio (test code = 1759-0) 1.2 0.8-2.0 [facility] TexasAlkaline [id number] 21:27:00* Test Item Value Reference Range Interpretation Comments Alkaline Phosphatase (test code = 6768-6) 72 40-150 [facility] [place]Creatine Kgdlfr3932-14-99 21:27:00* Test Item Value Reference Range Interpretation Comments Creatine Kinase (test code = 2157-6) 48 29-168 [facility] [place]White Blood [id number] 20:45:00* Test Item Value Reference Range Interpretation Comments White Blood Count (test code = 6690-2) 6.34 4.8-10.8 [facility] [place]Red Blood Eehcn8882-21-01 20:45:00* Test Item Value Reference Range Interpretation Comments Red Blood Count (test code = 789-8) 4.68 3.6-5.1 [facility] [place]Hemoglobin2020-02[facility] 20:45:00* Test Item Value Reference Range Interpretation Comments Hemoglobin (test code = 60475-5) 13.7 12.0-16.0 [facility] [place]Hematocrit2020-02-18 20:45:00* Test Item Value Reference Range Interpretation Comments Hematocrit (test code = 4544-3) 42.3 34.2-44.1 [facility] [place]Mean Corpuscular Rfggpr1519-43-38 20:45:00* Test Item Value Reference Range Interpretation Comments Mean Corpuscular Volume (test code = 787-2) 90.4 81-99 [facility]Mean Corpuscular [id number] 20:45:00* Test Item Value Reference Range Interpretation Comments Mean Corpuscular Hemoglobin (test code = 785-6) 29.3 28-32 [facility]Mean Corpuscular Hemoglobin Concent 2019-04-03 20:45:00* Test Item Value Reference Range Interpretation Comments Mean Corpuscular Hemoglobin Concent (test code = 786-4) 32.4 31-35 [facility] [place]Red Cell Distribution [id number] 20:45:00* Test Item Value Reference Range Interpretation Comments Red Cell Distribution Width (test code = 04192-7) 12.1 11.7 -14.4 [facility] TexasPlatelet [id number] 20:45:00* Test Item Value Reference Range Interpretation Comments Platelet Count (test code = 777-3) 257 140-360 [facility] TexasNeutrophils (%) (Auto)2019-04-03 20:45:00 * Test Item Value Reference Range Interpretation Comments Neutrophils (%) (Auto) (test code = 79689-6) 44.3 38.7-80.0 [facility] TexasLymphocytes (%) (Auto)2019-04-03 20:45:00 * Test Item Value Reference Range Interpretation Comments Lymphocytes (%) (Auto) (test code = 736-9) 42.0 18.0-39.1 H [facility] TexasMonocytes (%) (Auto)2019-04-03 20:45:00* Test Item Value Reference Range Interpretation Comments Monocytes (%) (Auto) (test code = 5905-5) 10.7 4.4-11.3 [facility]Eosinophils (%) (Auto)2019-04-03 20:45:00 * Test Item Value Reference Range Interpretation Comments Eosinophils (%) (Auto) (test code = 713-8) 2.2 0.0-6.0 [facility] [place]Basophils (%) (Auto)2019-04-03 20:45:00* Test Item Value Reference Range Interpretation Comments Basophils (%) (Auto) (test code = 706-2) 0.5 0.0-1.0 [facility] TexasIM GRANULOCYTES %2019-04-03 20:45:00* Test Item Value Reference Range Interpretation Comments IM GRANULOCYTES % (test code = IM GRANULOCYTES %) 0.3 0.0- 1.0 [facility] TexasNeutrophils # (Auto)2019-04-03 20:45:00* Test Item Value Reference Range Interpretation Comments Neutrophils # (Auto) (test code = 751-8) 2.8 2.1-6.9 [facility] TexasLymphocytes # (Auto)2019-04-03 20:45:00* Test Item Value Reference Range Interpretation Comments Lymphocytes # (Auto) (test code = 51147-2) 2.7 1.0-3.2 [facility] [place]Monocytes # (Auto)2019-04-03 20:45:00* Test Item Value Reference Range Interpretation Comments Monocytes # (Auto) (test code = 742-7) 0.7 0.2-0.8 [facility] [place]Eosinophils # (Auto)2019-04-03 20:45:00* Test Item Value Reference Range Interpretation Comments Eosinophils # (Auto) (test code = 711-2) 0.1 0.0-0.4 [facility] [place]Basophils # (Auto)2019-04-03 20:45:00* Test Item Value Reference Range Interpretation Comments Basophils # (Auto) (test code = 704-7) 0.0 0.0-0.1 [facility] TexasAbsolute Immature Granulocyte (auto 2019-04-03 20:45:00* Test Item Value Reference Range Interpretation Comments Absolute Immature Granulocyte (auto (marly t code = Absolute Immature Granulocyte (auto) 0.02 0-0.1 [facility] TexasProthrombin [id number] 20:45:00* Test Item Value Reference Range Interpretation Comments Prothrombin Time (test code = 5902-2) 12.8 11.9-14.5 [facility] TexasProthromb Time International Ratio 2019-04-03 20:45:00* Test Item Value Reference Range Interpretation Comments Prothromb Time International Ratio (test code = 6301-6) 0.91 Oral Anticoagulant Therapy INR Values:1. Low Intensity Therapy 1.5 - 2.02 . Moderate Intensity Therapy 2.0 - 3.03. High Intensity Therapy(1) 2.5 - 3. 54. High Intensity Therapy(2) 3.0 - 4.05. Panic Value INR > 5.0 [facility] TexasActivated Partial Thromboplast Time 2019-04-03 20:45:00* Test Item Value Reference Range Interpretation Comments Activated Partial Thromboplast Time (test code = 17838-6) 27.5 23.8-35.[address] [place] [address]
== END 2019-10-15 16:09 | disposition home or self-care (01) ==
LOC: FSED 14:35
DX: E11.65 Type 2 diabetes mellitus with hyperglycemia (principal); R11.2 Nausea with vomiting, unspecified; E86.0 Dehydration; I10 Essential (primary) hypertension; R94.31 Abnormal electrocardiogram [ECG] [EKG]
CPT/HCPCS: 80048; 80076; 81003; 82553; 84484; 85025; 93005; 96374; 99284; J7030

== ENCOUNTER 2019-10-18 14:01 | Inpatient (IN) | payer BC ==
[~2019-10-18] VITALS: Ht 170.2 cm; Wt 76.2 kg
[~2019-10-18 14:01] MED LIST changes: +ZOFRAN4 MG PO
--- OUTSIDE RECORDS SUMMARY | 2019-10-18 14:49 | XMS REPORT | Continuity of Care Document ---
Author Author [facility] t Organization [facility] Address [address] [place] [address] Phone Unavailable Care Team Providers Care Bleach Supervisor Name Role Phone NO, PCP PCP Unavailable DARREN STOREY [place] Unavailable Payers Payer Name Policy Type Policy Number Effective Date [facility] Date [id number] 2019 00:00[facility]00 [facility] Problems Condition Name Condition Details Condition Category Status Onset Date Resolution Date Last Treatment Date Treating Clinician Comments Source Hypovolemia Problem Active [facility] Dehydration Problem Active [facility] Nausea and vomiting Problem Active [facility] Hyperglycemia Problem Active I [facility] Hypertension Problem Active [facility] Diabetes mellitus Problem Active [facility] Allergies, Adverse Reactions, Alerts Allergy Name Allergy Type Status Severity Reaction(s) Onset Date Inacti ve Date Treating Clinician Comments Source iodine Allergy to substance Active 2017-11-09 00:00:00 [facility] Codeine Allergy to substance Active 2017-11-09 00:00:00 [facility] iodine DA Active U 2008-09-08 00:00:00 [facility] codeine DA Active U 2008-09-08 00:00:00 [facility] Social History Social Habit Start Date Stop Date Quantity Comments Source Sex Assigned At 1960 00:00:00 1960 00:00:00 Female [facility] Medications Ordered Medication Name Filled Medication Name Start Date Stop Da te Current Medication? Ordering Clinician Indication Dosage Frequency Signature (SIG) Comments Components Source Ondansetron Hcl (Zofran*) 4 Mg TABLET Ondansetron Hcl (Zofra n*) 4 Mg TABLET 2019-10-15 15:26:00 Yes 4 Every 6 Hours as n eeded for Nausea [facility] Aspirin (Aspir 81) 81 Mg TABLET. Aspirin (Aspir 81) 81 Mg TABLET. Yes 81 Every Morning [facility] Carvedilol (Coreg) 3.125 Mg TAB Carvedilol (Coreg) 3.125 Mg TAB Yes 3.125 Twice A Day [facility] Glipizide (Glucotrol) 10 Mg TABLET Glipizide (Glucotrol) 10 Mg TABLET Yes 10 Every Morning [facility] Isosorbide Mononitrate (Imdur) 30 Mg TABCR Isosorbide Mononitrate (Imdur) 30 Mg TABCR Yes 30 Every Morning [facility] Losartan Potassium (Cozaar) 50 Mg TAB Losartan Potassium (Cozaar) 5 0 Mg TAB Yes [address] [facility] Vital Signs Vital Name Observation Time Observation Value Comments Source Body Temperature 2019-10-15 16:09:00 98.9 [degF] [facility] Weight 2019-10-15 14:27:00 168 [lb_av] [facility] BMI (Body Mass Index) 2019-10-15 14:27:00 26.3 kg/m2 [facility] Procedures Procedure Date / Time Performed Performing Clinician [facility] e X-ray of chest, two views 2019-04-03 00:00:00 DARREN STOREY CH, I [facility] Plan of Care Planned Activity Planned Date Details Comments Source Instructions Clear Liquid Diet [facility] Instructions Hyperglycemia [facility] Instructions Vomiting - Adult [facility] Encounters Start Date/Time End Date/Time Encounter Type Admission Type [facility] Care Department Encounter ID Source 2019-10-15 14:35:00 2019-10-15 16:09:00 Departed Emergency Room Formerly [facility] [id number] [facility] 2019-04-03 19:12:00 2019-04-03 22:52:00 Departed Emergency Room 1 DARREN STOREY [facility] [id number] CH I [facility] 2017-11-09 13:08:00 2017-11-09 14:50:00 Departed Emergency Room [facility] [id number] [facility] Results Test Description Test Time Test Comments Results Result Comments Source GLUBED 2019-08-03 11:43:00 Test Item GLUBED (test code = GLUBED) 184 mg/dL 74-106 H Performed by certified epitaxial reactor operator at [facility] [id number] 07:26:00* Test Item Value Reference Range Interpretation Comments GLUBED (test code = GLUBED) 130 mg/dL 74-106 H Performed by certified epitaxial reactor operator at [facility] [id number] 21:09:00* Test Item Value Reference Range Interpretation Comments GLUBED (test code = GLUBED) 231 mg/dL 74-106 H Performed by certified epitaxial reactor operator at [facility] [id number] 15:58:00* Test Item Value Reference Range Interpretation Comments GLUBED (test code = GLUBED) 269 mg/dL 74-106 H Performed by certified epitaxial reactor operator at [facility] [id number] 14:23:00* Test Item Value Reference Range Interpretation Comments GLYCOSYLATED HEMOGLOBIN (HA1C) (test code = GLYHGB) 12.8 % HbA1 SUGGESTED DIAGNOSIS: HbA1C (%) Diabetic >6.4Prediabetes 5.7 - 6.4Normal <5.7 ESTIMATED AVERAGE GLUCOSE (test code = EAG) 321 MG/DL THYROID STIMULATING [id number] 14:18:00* Test Item Value Reference Range Interpretation Comments THYROID STIMULATING HORMONE (test code = TSH) 0.890 uIU/mL 0.36-3.7 4 N TSH REFERENCE RANGES: EUTHYROID: 0.35 - 4.3 mIU/mL HYPO : > 5.5 mIU/mL HYPER : < 0.35 mIU/mL [id number] 13:15:00* Test Item Value Reference Range Interpretation Comments TROPONIN-I (test code = TROPI) 0.122 ng/mL 0-0.045 COMMENTS TO CHEMICAL LABORATORY TECHNICIAN: COLLECT 3 HOURS AFTER PREVIOUS [id number] 11:54:00* Test Item Value Reference Range Interpretation Comments GLUBED (test code = GLUBED) 207 mg/dL 74-106 H Performed by certified epitaxial reactor operator at [facility] [id number] 09:58:00* Test Item Value Reference Range Interpretation Comments TROPONIN-I (test code = TROPI) 0.150 ng/mL 0-0.045 COMMENTS TO CHEMICAL LABORATORY TECHNICIAN: COLLECT 3 HOURS AFTER PREVIOUS SAMPLEBASIC METABOLIC [id number] 09:57:00* Test Item Value Reference Range Interpretation [...] This LDL result is a direct measurement.========= [id number] 09:57:00* Test Item Value Reference Range Interpretation Comments MAGNESIUM (test code = MAG) 1.9 mg/dL 1.8-2.4 N BASIC METABOLIC [id number] 09:49:00* Test Item Value Reference Range Interpretation [...] LDL (test code = LDL) mg/dL 100-129 [id number] 09:49:00* Test Item Value Reference Range Interpretation Comments MAGNESIUM (test code = MAG) mg/dL 1.8-2.4 CBC W/AUTO [id number] 09:21:00* Test Item Value Reference Range Interpretation [...] K/mm3 0.0-0.1 N DRUGS OF ABUSE SCREEN [id number] 07:53:00* Test Item Value Reference Range Interpretation [...] NEGATIVE <300 ng/mL DRUGS OF ABUSE SCREEN [id number] 07:06:00* Test Item Value Reference Range Interpretation [...] METHADONE (test code = METHAURN) <300 ng/mL [id number] 05:26:00* Test Item Value Reference Range Interpretation Comments GLUBED (test code = GLUBED) 267 mg/dL 74-106 H Performed by certified epitaxial reactor operator at [facility] HEPATIC FUNCTION [id number] 01:53:00* Test Item Value Reference Range Interpretation [...] reference range due to change in reagent. [id number] 01:53:00* Test Item Value Reference Range Interpretation Comments MAGNESIUM (test code = MAG) 1.9 mg/dL 1.8-2.4 N TSH REFLEX TO [id number] 01:53:00* Test Item Value Reference Range Interpretation Comments TSH REFLEX TO FT4 (test code = TSHREFLEX) 0.4 0.4-5.5 N PROTHROMBIN [id number] 01:18:00* Test Item Value Reference Range Interpretation [...] (2.5-3.5) IS PATIENT ON ANTICOAGULANTS? NTHROMBOPLASTIN TIME [id number] 01:18:00* Test Item Value Reference Range Interpretation Comments THROMBOPLASTIN TIME PARTIAL (test code = PTT) 26.7 seconds 23.0-37. 0 N IS PATIENT ON ANTICOAGULANTS? [id number] 01:17:00* Test Item Value Reference Range Interpretation Comments GLYCOSYLATED HEMOGLOBIN (HA1C) (test code = GLYHGB) 12.3 % HbA1 SUGGESTED DIAGNOSIS: HbA1C (%) Diabetic >6.4Prediabetes 5.7 - 6.4Normal <5.7 ESTIMATED AVERAGE GLUCOSE (test code = EAG) 306 MG/DL BASIC METABOLIC [id number] 21:24:00* Test Item Value Reference Range Interpretation [...] code = CA) 8.9 mg/dL 8.5-10.1 N [id number] 21:24:00* Test Item Value Reference Range Interpretation Comments TROPONIN-I (test code = TROPI) 0.112 ng/mL 0-0.045 Results called to [id number] by V.[facility] 08/01/19 2124Critical results verified and read back by Nurse? Y BASIC METABOLIC [id number] 21:09:00* Test Item Value Reference Range Interpretation [...] code = CA) 8.9 mg/dL 8.5-10.1 N [id number] 21:09:00* Test Item Value Reference Range Interpretation Comments TROPONIN-I (test code = TROPI) ng/mL 0-0.045 URINALYSIS [id number] 21:09:00* Test Item Value Reference Range Interpretation [...] #/LPF NONE Urine Source? Clean CatchBASIC METABOLIC [id number] 21:08:00* Test Item Value Reference Range Interpretation [...] CALCIUM (test code = CA) mg/dL 8.5-10.1 [id number] 21:08:00* Test Item Value Reference Range Interpretation Comments TROPONIN-I (test code = TROPI) ng/mL 0-0.045 CBC W/O [id number] 20:52:00* Test Item Value Reference Range Interpretation [...] fL 6.7-11.0 H - XR CHEST 1 [id number] 18:39:00 FAX: Eduardo Johnson DO [place]: B St: REG Name: BAILEE GODINEZ [facility] : [birth year] Age/S: 59/F [address] [facility] Unit #: [id number] Loc: [place] [address] Phys: Eduardo Johnson DO Acct: [id number] Dis Date: Status: REG ER PHONE #: [phone] Exam Date: 08/01/20191826 FAX #: [phone] Reason: CHEST PAIN EXAMS: CPT CODE: [id number] XR CHEST 1 V 92642 EXAM: Chest X-ray, 1 view; CLINICAL HISTORY: Chest pain; FINDINGS: The lungs are clear, no infiltrates, no edema; no effusions; no pneumothorax; n ormal cardiomediastinal silhouette. IMPRESSION: Normal chest x-ray. Location code: [facility] Signed by Azra Maier on 08/01/2019 pat gunter 1838 Reported and signed by: Felipe Alexis ch, M.D. CC: Eduardo Johnson DO Technologist: Ángela De Oliveira(Shayy) Trnscrd Date/Time/By: 08/01/2019 (1838) : By: RajGRW Orig Print D/T: S: 08/01/2019 (1841) PAGE 1 Signed Report Capillary blood glucose measurement by glucometer (mass/volume)2019-04-03 22:04:00* Test Item Value Reference Range Interpretation Comments Bedside Glucose (test code = 15695-1) 280 70-120 Meter ID: [id number] VIEWS 2019-04-03 22:04:00 [place] [address] Patient Name: BAILEE MARCUM MR #: [id number] : 1960 Age/Sex: 59/F Req #: [id number] Adm Physician: Ordered by: DARREN STOREY DO Report #: [id number] Location: ER Room/Bed: Procedure: 0218-007 2 DX/CHEST 2 VIEWS Exam Date: 04/03/19 Exam Time: REPORT STATUS: Signed EXAMINA TION: CHEST 2 [...] Comments Creatine Kinase MB (test code = 68572-3) 0.90 0-5.0 [facility] CenterTroponin [id number] 21:32:00* Test Item Value Reference Range Interpretation Comments Troponin I (test code = FRT1146) < 0.001 0-0.[address] [facility] [id number] 21:27:00* Test Item Value Reference Range Interpretation Comments Sodium Level (test code = 2951-2) 134 136-145 L [facility] CenterPotassium Uqbmi0324-48-83 21:27:00* Test Item Value Reference Range Interpretation Comments Potassium Level (test code = 2823-3) 3.9 3.5-5.1 [facility] CenterChloride [id number] 21:27:00* Test Item Value Reference Range Interpretation Comments Chloride Level (test code = 2075-0) 100 98-107 [facility] CenterCarbon Dioxide [id number] 21:27:00* Test Item Value Reference Range Interpretation Comments Carbon Dioxide Level (test code = 2028-9) 23 22-29 [facility] CenterAnion [id number] 21:27:00* Test Item Value Reference Range Interpretation Comments Anion Gap (test code = 21221-4) 14.9 8-16 [facility] CenterBlood Urea [id number] 21:27:00* Test Item Value Reference Range Interpretation Comments Blood Urea Nitrogen (test code = 3094-0) 11 7-26 [facility] CenterCreatinine2020-02-18 21:27:00* Test Item Value Reference Range Interpretation Comments Creatinine (test code = 2160-0) 1.03 0.57-1.11 [facility] CenterBUN/Creatinine Xpvop0535-03-17 21:27:00* Test Item Value Reference Range Interpretation Comments BUN/Creatinine Ratio (test code = 3097-3) 11 6-25 [facility] CenterEstimat Glomerular Filtration Rate 2019-04-03 21:27:00* Test Item Value Reference Range Interpretation Comments Estimat Glomerular Filtration Rate (test code = 333182158) > 60 >60 Ranges were taken from the National Kidney Disease Education Program and the [facility] Foundation literature.Reference ranges:60 or greater: Uaevwh78-23 ( for 3 consecutive months): Chronic kidney disease 15 or less: Kidney failurePeterson Regional Medical CenterGlucose Qgnti5107-24-45 21:27:00* Test Item Value Reference Range Interpretation Comments Glucose Level (test code = CIW96918) 766 54-111 Results repeated and called to at 2126 on 04/03/19 by Susan Bennett. Read b ack and verified.[facility] CenterCalcium Uccph1740-65-38 21:27:00* Test Item Value Reference Range Interpretation Comments Calcium Level (test code = 39712-2) 9.4 8.4-10.2 [facility] CenterTotal Avbqtuerz7708-67-77 21:27:00* Test Item Value Reference Range Interpretation Comments Total Bilirubin (test code = 1975-2) 0.3 0.2-1.2 [facility] CenterAspartate Amino Transf (AST/SGOT) 2019-04-03 21:27:00* Test Item Value Reference Range Interpretation Comments Aspartate Amino Transf (AST/SGOT) (test code = Aspartate Amino Transf (AST/SGOT)) 15 5-34 [facility] CenterAlanine Aminotransferase (ALT/SGPT) 2019-04-03 21:27:00* Test Item Value Reference Range Interpretation Comments Alanine Aminotransferase (ALT/SGPT) (test code = 1742-6) 20 0-55 [facility] CenterTotal Fvphsfa0389-46-97 21:27:00* Test Item Value Reference Range Interpretation Comments Total Protein (test code = 2885-2) 7.0 6.5-8.1 [facility] CenterAlbumin2020-02-18 21:27:00* Test Item Value Reference Range Interpretation Comments Albumin (test code = 1751-7) 3.8 3.5-5.0 [facility] CenterGlobulin2020-02-18 21:27:00* Test Item Value Reference Range Interpretation Comments Globulin (test code = 16818-3) 3.2 2.3-3.5 [facility] CenterAlbumin/Globulin Pjoku0891-88-87 21:27:00 * Test Item Value Reference Range Interpretation Comments Albumin/Globulin Ratio (test code = 1759-0) 1.2 0.8-2.0 [facility] CenterAlkaline Vgluaupyaga3635-98-05 21:27:00* Test Item Value Reference Range Interpretation Comments Alkaline Phosphatase (test code = 6768-6) 72 40-150 [facility] CenterCreatine Ndemvj8774-32-35 21:27:00* Test Item Value Reference Range Interpretation Comments Creatine Kinase (test code = 2157-6) 48 29-168 [facility] CenterWhite Blood Umfsg5692-61-99 20:45:00* Test Item Value Reference Range Interpretation Comments White Blood Count (test code = 6690-2) 6.34 4.8-10.8 [facility] CenterRed Blood Htqkc0996-90-24 20:45:00* Test Item Value Reference Range Interpretation Comments Red Blood Count (test code = 789-8) 4.68 3.6-5.1 [facility] CenterHemoglobin2020-02-18 20:45:00* Test Item Value Reference Range Interpretation Comments Hemoglobin (test code = 95400-6) 13.7 12.0-16.0 [facility] CenterHematocrit2020-02-18 20:45:00* Test Item Value Reference Range Interpretation Comments Hematocrit (test code = 4544-3) 42.3 34.2-44.1 [facility] CenterMean Corpuscular Fwnqrv3887-02-11 20:45:00* Test Item Value Reference Range Interpretation Comments Mean Corpuscular Volume (test code = 787-2) 90.4 81-99 [facility] CenterMean Corpuscular Vyybqqqmpl2384-52-51 20:45:00* Test Item Value Reference Range Interpretation Comments Mean Corpuscular Hemoglobin (test code = 785-6) 29.3 28-32 [facility] CenterMean Corpuscular Hemoglobin Concent 2019-04-03 20:45:00* Test Item Value Reference Range Interpretation Comments Mean Corpuscular Hemoglobin Concent (test code = 786-4) 32.4 31-35 [facility] CenterRed Cell Distribution Yoros1651-23-28 20:45:00* Test Item Value Reference Range Interpretation Comments Red Cell Distribution Width (test code = 37131-7) 12.1 11.7 -14.4 [facility] CenterPlatelet Liiek1317-53-44 20:45:00* Test Item Value Reference Range Interpretation Comments Platelet Count (test code = 777-3) 257 140-360 [facility] CenterNeutrophils (%) (Auto)2019-04-03 20:45:00 * Test Item Value Reference Range Interpretation Comments Neutrophils (%) (Auto) (test code = 72386-7) 44.3 38.7-80.0 [facility] CenterLymphocytes (%) (Auto)2019-04-03 20:45:00 * Test Item Value Reference Range Interpretation Comments Lymphocytes (%) (Auto) (test code = 736-9) 42.0 18.0-39.1 H [facility] CenterMonocytes (%) (Auto)2019-04-03 20:45:00* Test Item Value Reference Range Interpretation Comments Monocytes (%) (Auto) (test code = 5905-5) 10.7 4.4-11.3 [facility] CenterEosinophils (%) (Auto)2019-04-03 20:45:00 * Test Item Value Reference Range Interpretation Comments Eosinophils (%) (Auto) (test code = 713-8) 2.2 0.0-6.0 [facility] CenterBasophils (%) (Auto)2019-04-03 20:45:00* Test Item Value Reference Range Interpretation Comments Basophils (%) (Auto) (test code = 706-2) 0.5 0.0-1.0 [facility] CenterIM GRANULOCYTES %2019-04-03 20:45:00* Test Item Value Reference Range Interpretation Comments IM GRANULOCYTES % (test code = IM GRANULOCYTES %) 0.3 0.0- 1.0 [facility] CenterNeutrophils # (Auto)2019-04-03 20:45:00* Test Item Value Reference Range Interpretation Comments Neutrophils # (Auto) (test code = 751-8) 2.8 2.1-6.9 [facility] CenterLymphocytes # (Auto)2019-04-03 20:45:00* Test Item Value Reference Range Interpretation Comments Lymphocytes # (Auto) (test code = 42462-5) 2.7 1.0-3.2 [facility] CenterMonocytes # (Auto)2019-04-03 20:45:00* Test Item Value Reference Range Interpretation Comments Monocytes # (Auto) (test code = 742-7) 0.7 0.2-0.8 [facility] CenterEosinophils # (Auto)2019-04-03 20:45:00* Test Item Value Reference Range Interpretation Comments Eosinophils # (Auto) (test code = 711-2) 0.1 0.0-0.4 [facility] CenterBasophils # (Auto)2019-04-03 20:45:00* Test Item Value Reference Range Interpretation Comments Basophils # (Auto) (test code = 704-7) 0.0 0.0-0.1 [facility] CenterAbsolute Immature Granulocyte (auto 2019-04-03 20:45:00* Test Item Value Reference Range Interpretation Comments Absolute Immature Granulocyte (auto (marly t code = Absolute Immature Granulocyte (auto) 0.02 0-0.1 [facility] CenterProthrombin Ssfm2465-26-84 20:45:00* Test Item Value Reference Range Interpretation Comments Prothrombin Time (test code = 5902-2) 12.8 11.9-14.5 [facility] CenterProthromb Time International Ratio 2019-04-03 20:45:00* Test Item Value Reference Range Interpretation Comments Prothromb Time International Ratio (test code = 6301-6) 0.91 Oral Anticoagulant Therapy INR Values:1. Low Intensity Therapy 1.5 - 2.02 . Moderate Intensity Therapy 2.0 - 3.03. High Intensity Therapy(1) 2.5 - 3. 54. High Intensity Therapy(2) 3.0 - 4.05. Panic Value INR > 5.0 [facility] CenterActivated Partial Thromboplast Time 2019-04-03 20:45:00* Test Item Value Reference Range Interpretation Comments Activated Partial Thromboplast Time (test code = 60200-1) 27.5 23.8-35.5 [facility] CenterBlood leukocytes automated count (number/volume)2019-04-03 19:10:00* Test Item Value Reference Range Interpretation Comments White Blood Count (test code = 6690-2) 6.34 4.8-10.8 [facility] CenterBlood erythrocytes automated count (number/volume)2019-04-03 19:10:00* Test Item Value Reference Range Interpretation Comments Red Blood Count (test code = 789-8) 4.68 3.6-5.1 [facility] CenterBlood hemoglobin measurement (moles/volume)2019-04-03 19:10:00* Test Item Value Reference Range Interpretation Comments Hemoglobin (test code = 65852-4) 13.7 12.0-16.0 [facility] CenterAutomated blood hematocrit (volume fraction)2019-04-03 19:10:00* Test Item Value Reference Range Interpretation Comments Hematocrit (test code = 4544-3) 42.3 34.2-44.1 [facility] CenterAutomated erythrocyte mean corpuscular mhoxmt5094-92-08 19:10:00* Test Item Value Reference Range Interpretation Comments Mean Corpuscular Volume (test code = 787-2) 90.4 81-99 [facility] CenterAutomated erythrocyte mean corpuscular hemoglobin (mass per erythrocyte)2019-04-03 19:10:00* Test Item Value Reference Range Interpretation Comments Mean Corpuscular Hemoglobin (test code = 785-6) 29.3 28-32 [facility] CenterAutomated erythrocyte mean corpuscular hemoglobin concentration measurement (mass/volume)2019-04-03 19:10:00* Test Item Value Reference Range Interpretation Comments Mean Corpuscular Hemoglobin Concent (test code = 786-4) 32.4 31-35 [facility] CenterRDW HzlIq-Sml4599-80-18 19:10:00* Test Item Value Reference Range Interpretation Comments Red Cell Distribution Width (test code = 23252-0) 12.1 11.7 -14.4 [facility] CenterAutomated blood platelet count (count/volume)2019-04-03 19:10:00* Test Item Value Reference Range Interpretation Comments Platelet Count (test code = 777-3) 257 140-360 [facility] CenterAutomated blood segmented neutrophil count as percentage of total uzzxgsppah6829-79-50 19:10:00* Test Item Value Reference Range Interpretation Comments Neutrophils (%) (Auto) (test code = 36911-5) 44.3 38.7-80.0 [facility] CenterAutomated blood lymphocyte count as percentage ot total wxhtfwloen1570-14-34 19:10:00* Test Item Value Reference Range Interpretation Comments Lymphocytes (%) (Auto) (test code = 736-9) 42.0 18.0-39.1 [facility] CenterAutomated blood monocyte count as percentage of total wwyeavzais1863-42-69 19:10:00* Test Item Value Reference Range Interpretation Comments Monocytes (%) (Auto) (test code = 5905-5) 10.7 4.4-11.3 [facility] CenterAutomated blood eosinophil count as percentage of total fwdkarelux5884-00-86 19:10:00* Test Item Value Reference Range Interpretation Comments Eosinophils (%) (Auto) (test code = 713-8) 2.2 0.0-6.0 [facility] CenterAutomated blood basophil count as percentage of total ywlsfylrmx0638-68-58 19:10:00* Test Item Value Reference Range Interpretation Comments Basophils (%) (Auto) (test code = 706-2) 0.5 0.0-1.0 [facility] CenterFluoroscopic procedure less than one hour emvqvlpw9472-01-79 19:10:00* Test Item Value Reference Range Interpretation Comments IM GRANULOCYTES % (test code = IM GRANULOCYTES %) 0.3 0.0- 1.0 [facility] CenterAutomated blood neutrophil count 2019-04-03 19:10:00* Test Item Value Reference Range Interpretation Comments Neutrophils # (Auto) (test code = 751-8) 2.8 2.1-6.9 [facility] CenterBlood lymphocytes count (number/volume) 2019-04-03 19:10:00* Test Item Value Reference Range Interpretation Comments Lymphocytes # (Auto) (test code = 65599-4) 2.7 1.0-3.2 [facility] CenterBlood monocytes automated count (number/volume)2019-04-03 19:10:00* Test Item Value Reference Range Interpretation Comments Monocytes # (Auto) (test code = 742-7) 0.7 0.2-0.8 [facility] CenterAutomated blood eosinophil count 2019-04-03 19:10:00* Test Item Value Reference Range Interpretation Comments Eosinophils # (Auto) (test code = 711-2) 0.1 0.0-0.4 [facility] CenterAutomated blood basophil count (count/volume)2019-04-03 19:10:00* Test Item Value Reference Range Interpretation Comments Basophils # (Auto) (test code = 704-7) 0.0 0.0-0.1 [facility] CenterFluoroscopic procedure less than one hour [id number] 19:10:00* Test Item Value Reference Range Interpretation Comments Absolute Immature Granulocyte (auto (marly t code = Absolute Immature Granulocyte (auto) 0.02 0-0.1 [facility] CenterProthrombin time (PT) in platelet poor plasma by coagulation [id number] 19:10:00* Test Item Value Reference Range Interpretation Comments Prothrombin Time (test code = 5902-2) 12.8 11.9-14.5 [facility] CenterINR in Platelet poor plasma by Coagulation [id number] 19:10:00* Test Item Value Reference Range Interpretation Comments Prothromb Time International Ratio (test code = 6301-6) 0.91 Oral Anticoagulant Therapy INR Values:1. Low Intensity Therapy 1.5 - 2.02 . Moderate Intensity Therapy 2.0 - 3.03. High Intensity Therapy(1) 2.5 - 3. 54. High Intensity Therapy(2) 3.0 - 4.05. Panic Value INR > 5.0 [facility] CenterActivated partial thromboplastin time (aPTT) in platelet poor plasma by coagulation [id number] 19:10:00* Test Item Value Reference Range Interpretation Comments Activated Partial Thromboplast Time (test code = 65556-2) 27.5 23.8-35.[address] [facility] sodium measurement (moles/volume)2019-04-03 19:10:00* Test Item Value Reference Range Interpretation Comments Sodium Level (test code = 2951-2) 134 136-[address] [facility]erum [facility] plasma potassium measurement (moles/volume)2019-04-03 19:10:00* Test Item Value Reference Range Interpretation Comments Potassium Level (test code = 2823-3) 3.9 3.5-5.[address] [facility]er[facility] plasma chloride measurement (moles/volume)2019-04-03 19:10:00* Test Item Value Reference Range Interpretation Comments Chloride Level (test code = 2075-0) 100 98-[address] [facility]erum or plasma carbon dioxide, total measurement (moles/volume)2019-04-03 19:10:00* Test Item Value Reference Range Interpretation Comments Carbon Dioxide Level (test code = 2028-9) 23 22-[address] [facility]erum or plasma anion [id number] 19:10:00* Test Item Value Reference Range Interpretation Comments Anion Gap (test code = 81306-8) 14.9 8-[address] [facility]erum [facility] plasma urea nitrogen measurement (mass/volume)2019-04-03 19:10:00* Test Item Value Reference Range Interpretation Comments Blood Urea Nitrogen (test code = 3094-0) 11 7-[address] [facility]erum or plasma creatinine measurement (mass/volume)2019-04-03 19:10:00* Test Item Value Reference Range Interpretation Comments Creatinine (test code = 2160-0) 1.03 0.57-1.[address] [facility]erum or plasma urea nitrogen/creatinine mass [id number] 19:10:00* Test Item Value Reference Range Interpretation Comments BUN/Creatinine Ratio (test code = 3097-3) 11 6-25 [facility] CenterEstimated glomerular filtration rate (GFR) [id number] 19:10:00* Test Item Value Reference Range Interpretation Comments Estimat Glomerular Filtration Rate (test code = 345144795) > 60 >60 Ranges were taken from the National Kidney Disease Education Program and the [facility] literature.Reference ranges:60 or greater: Ieqiww33-66 ( for 3 consecutive months): Chronic kidney disease 15 or less: Kidney failurePeterson Regional Medical CenterGlucose [id number] 19:10:00* Test Item Value Reference Range Interpretation Comments Glucose Level (test code = EEA9513) 561 74-118 Results repeated and [facility] at 2126 on 04/03/19 by Susan Bennett. Read b ack and verified.[facility] Hospitalerum or plasma calcium measurement (mass/volume)2019-04-03 19:10:00* Test Item Value Reference Range Interpretation Comments Calcium Level (test code = 82725-8) 9.4 8.4-10.[address] [facility]erum or plasma total bilirubin measurement (mass/volume)2019-04-03 19:10:00* Test Item Value Reference Range Interpretation Comments Total Bilirubin (test code = 1975-2) 0.3 0.2-1.2 [facility] CenterFluoroscopic procedure less than one hour [id number] 19:10:00* Test Item Value Reference Range Interpretation Comments Aspartate Amino Transf (AST/SGOT) (test code = Aspartate Amino Transf (AST/SGOT)) 15 5-[address] [facility] Hospitalerum or plasma alanine aminotransferase measurement (enzymatic activity/volume)2019-04-03 19:10:00* Test Item Value Reference Range Interpretation Comments Alanine Aminotransferase (ALT/SGPT) (test code = 1742-6) 20 0-[address] [facility] Hospitalerum or plasma protein measurement (mass/volume)2019-04-03 19:10:00* Test Item Value Reference Range Interpretation Comments Total Protein (test code = 2885-2) 7.0 6.5-8.[address] [facility] Hospitalerum or plasma albumin measurement (mass/volume)2019-04-03 19:10:00* Test Item Value Reference Range Interpretation Comments Albumin (test code = 1751-7) 3.8 3.5-5.0 [facility] CenterPlasma globulin measurement (mass/volume) 2019-04-03 19:10:00* Test Item Value Reference Range Interpretation Comments Globulin (test code = 99700-0) 3.2 2.3-3.[address] [facility]erum or plasma albumin/globulin mass [id number] 19:10:00* Test Item Value Reference Range Interpretation Comments Albumin/Globulin Ratio (test code = 1759-0) 1.2 0.8-2.[address] [facility] Hospitalerum or plasma alkaline phosphatase measurement (enzymatic activity/volume)2019-04-03 19:10:00* Test Item Value Reference Range Interpretation Comments Alkaline Phosphatase (test code = 6768-6) 72 40-[address] [facility] Hospitalerum or plasma creatine kinase measurement (enzymatic activity/volume)2019-04-03 19:10:00* Test Item Value Reference Range Interpretation Comments Creatine Kinase (test code = 2157-6) 48 29-[address] [facility] Hospitalerum or plasma creatine kinase MB measurement (mass/volume)2019-04-03 19:10:00* Test Item Value Reference Range Interpretation Comments Creatine Kinase MB (test code = 46961-4) 0.90 0-5.0 [facility] CenterTroponin I measurement by highly sensitive enzyme [id number] 19:10:00* Test Item Value Reference Range Interpretation Comments Troponin I (test code = 91674-6) < 0.001 0-0.300 [facility]
[2019-10-18 14:51] LABS: BASOPHILS % 0.1 % (0.0-1.0); HEMOGLOBIN 12.7 g/dL (12.0-16.0); LYMPHOCYTES # (AUTO) 1.1 (1.0-3.2); LYMPHOCYTES % 11.4 % (18.0-39.1); MEAN CORPUSCULAR HEMOGLOBIN 29.4 pg (28-32); MEAN CORPUSCULAR HGB CONC 33.4 g/dL (31-35); MONOCYTES # (AUTO) 0.8 (0.2-0.8); MONOCYTES % 7.7 % (4.4-11.3); NEUTROPHILS # (AUTO) 7.9 (2.1-6.9); NEUTROPHILS % 80.2 % (38.7-80.0); PLATELET COUNT 230 x10e3/uL (140-360); RED BLOOD COUNT 4.32 x10e6/uL (3.6-5.1); RED CELL DISTRIBUTION WIDTH 11.6 % (11.7-14.4)
[2019-10-18 15:00] LABS: BILIRUBIN,URINE SMALL (NEGATIVE); CLARITY,URINE SL CLOUDY (CLEAR); COLOR,URINE AMBER (YELLOW); KETONES,URINE 2+ (NEGATIVE); LEUKOCYTE ESTERASE ,URINE NEGATIVE (NEGATIVE); NITRITE,URINE NEGATIVE (NEGATIVE); PROTEIN,URINE DIPSTICK >=300 (NEGATIVE); URINE UROBILINOGEN 8 mg/dL (0.2 - 1)
[2019-10-18 15:03] LABS: ALANINE AMINOTRANSFERASE 46 IU/L (0-55); ALBUMIN 3.9 g/dL (3.5-5.0); ALKALINE PHOSPHATASE 70 IU/L (40-150); ANION GAP 17.5 mmol/L (8-16); BLOOD UREA NITROGEN 13 mg/dL (7-26); BUN/CREATININE RATIO 15 (6-25); CALCIUM 9.3 mg/dL (8.4-10.2); CARBON DIOXIDE 24 mmol/L (22-29); CHLORIDE 92 mmol/L (98-107); CREATINE KINASE 50 IU/L (29-168); CREATININE, SERUM 0.86 mg/dL (0.57-1.11); EST GLOMERULAR FILTRATION RATE > 60 ML/MIN (60-); GLUCOSE 178 mg/dL (74-118); POTASSIUM 3.5 mmol/L (3.5-5.1); SODIUM 130 mmol/L (136-145)
--- NOTE | 2019-10-18 15:05 | Diagnostic Imaging Report ---
EXAMINATION: CHEST 2 VIEWS INDICATION: Nausea and vomiting. Dizziness. Weakness ^weak ^[id number] ^[id number] COMPARISON: April 03, 2019 FINDINGS: TUBES and LINES: None. LUNGS: Lungs are well inflated. Perihilar peribronchial hazy opacity could be due to bronchitis. No focal lung consolidation. PLEURA: No pleural effusion or pneumothorax. HEART AND MEDIASTINUM: The cardiomediastinal silhouette is unremarkable. BONES AND SOFT TISSUES: No acute osseous lesion. Soft tissues are unremarkable. UPPER ABDOMEN: No free air under the diaphragm. IMPRESSION: Perihilar peribronchial hazy opacity could be due to bronchitis. No focal lung consolidation. Signed by: Dr. Tom Bond M.D. on 10/18/2019 3:02 PM
[2019-10-18 15:15] LABS: BACTERIA,URINE MANY /HPF; EPITHELIAL CELLS,URINE FEW /LPF; TRANSITIONAL EPI CELLS,URINE FEW
--- NOTE | 2019-10-18 16:06 | Diagnostic Imaging Report ---
Exam: Head CT without contrast History: Dizziness, nausea, vomiting Comparison studies: None Technique: Axial images were obtained from the skull base to the vertex. Coronal and sagittal images reconstructed from the axial data. Dose modulation, iterative reconstruction, and/or weight based adjustment of the mA/kV was utilized to reduce the radiation dose to as low as reasonably achievable. Radiation dose: Total DLP: 832.18 mGy*cm. Estimated effective dose: DLP x 0.015 Intravenous contrast: None Findings: Scalp: No abnormalities. Bones: No fractures, blastic or lytic lesions. Brain sulci: Appropriate for age. Ventricles: Normal in size and configuration. No hydrocephalus. Extra-axial spaces: No masses, no fluid collection. Parenchyma: No abnormal densities. No masses, hemorrhage, acute or chronic vascular insults. Sellar/suprasellar region: No abnormalities. Craniocervical junction: Patent foramen magnum. No Chiari one malformation. Incidental findings: Atherosclerotic calcifications in the carotid siphons.. IMPRESSION: No acute intracranial abnormalities. Signed by: Dr. Lokesh Dejesus M.D. on 10/18/2019 4:03 PM
--- NOTE | 2019-10-18 16:14 | Emergency Department Note ---
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 Any updates have been documented here. Past Medical History Recent Fever: No Clinical Suspicion of Infectio: No New/Unexplained Change in Ment: No Past Medical History: Hypertension, Diabetes, Hyperlipedemia Other Medical History: palpation, high chol Past Surgical History: None Other Surgery: BREAST BIOPSY Social History Smoking Cessation: Never Smoker Counseling Performed: Yes Alcohol Use: Occasional Any Illegal Drug Use: No Other Last Tetanus: > 5 YEARS Any Pre-Existing Lines (PICC,: No Physical Exam Related Data Allergies: Coded Allergies: codeine (Verified Allergy, Unknown, 10/18/19) iodine (Verified Allergy, Unknown, 11/09/17) Triage Vital Signs Vital Signs Date Time Temp Pulse Resp B/P (MAP) Pulse Ox O2 Delivery O2 Flow Rate FiO2 10/18/19 14:07 98.2 96 18 119/72 97 Room Air Physical Exam CONSTITUTIONAL HENT EYES NECK PULMONARY CARDIOVASCULAR GASTROINTESTINAL GENITOURINARY SKIN MUSCULOSKELETAL NEUROLOGICAL PSYCHOLOGICAL Results Laboratory Result Diagram: 10/18/19 1415 10/18/19 1415 Laboratory Laboratory Tests Test 10/18/19 14:15 White Blood Count 9.90 x10e3/uL (4.8-10.8) Red Blood Count 4.32 x10e6/uL (3.6-5.1) Hemoglobin 12.7 g/dL (12.0-16.0) Hematocrit 38.0 % (34.2-44.1) Mean Corpuscular Volume 88.0 fL (81-99) Mean Corpuscular Hemoglobin 29.4 pg (28-32) Mean Corpuscular Hemoglobin Concent 33.4 g/dL (31-35) Red Cell Distribution Width 11.6 % (11.7-14.4) Platelet Count 230 x10e3/uL (140-360) Neutrophils (%) (Auto) 80.2 % (38.7-80.0) Lymphocytes (%) (Auto) 11.4 % (18.0-39.1) Monocytes (%) (Auto) 7.7 % (4.4-11.3) Eosinophils (%) (Auto) 0.0 % (0.0-6.0) Basophils (%) (Auto) 0.1 % (0.0-1.0) Neutrophils # (Auto) 7.9 (2.1-6.9) Lymphocytes # (Auto) 1.1 (1.0-3.2) Monocytes # (Auto) 0.8 (0.2-0.8) Eosinophils # (Auto) 0.0 (0.0-0.4) Basophils # (Auto) 0.0 (0.0-0.1) Absolute Immature Granulocyte (auto 0.06 x10e3/uL (0-0.1) Urine Color María (YELLOW) Urine Clarity Sl cloudy (CLEAR) Urine pH 5.5 (5 - 7) Urine Specific [place] 1.025 (1.010-1.025) Urine Protein >=300 (NEGATIVE) Urine Glucose (UA) 1+ (NEGATIVE) Urine Ketones 2+ (NEGATIVE) Urine Blood Trace (NEGATIVE) Urine Nitrite Negative (NEGATIVE) Urine Bilirubin Small (NEGATIVE) Urine Urobilinogen 8 mg/dL (0.2 - 1) Urine Leukocyte Esterase Negative (NEGATIVE) Urine RBC 11-20 /HPF (0-5) Urine WBC None /HPF (0-5) Urine Epithelial Cells Few /LPF (NONE) Urine Transitional Epithelial Cells Few (NONE) Urine Bacteria Many /HPF (NONE) Sodium Level 130 mmol/L (136-145) Potassium Level 3.5 mmol/L (3.5-5.1) Chloride Level 92 mmol/L (98-107) Carbon Dioxide Level 24 mmol/L (22-29) Anion Gap 17.5 mmol/L (8-16) Blood Urea Nitrogen 13 mg/dL (7-26) Creatinine 0.86 mg/dL (0.57-1.11) Estimat Glomerular Filtration Rate > 60 ML/MIN (60-) BUN/Creatinine Ratio 15 (6-25) Glucose Level 178 mg/dL (74-118) Calcium Level 9.3 mg/dL (8.4-10.2) Total Bilirubin 0.9 mg/dL (0.2-1.2) Aspartate Amino Transf (AST/SGOT) 66 IU/L (5-34) Alanine Aminotransferase (ALT/SGPT) 46 IU/L (0-55) Alkaline Phosphatase 70 IU/L (40-150) Creatine Kinase 50 IU/L (29-168) Creatine Kinase MB 0.40 ng/mL (0-5.0) Troponin I 0.008 ng/mL (0-0.300) Total Protein 7.9 g/dL (6.5-8.1) Albumin 3.9 g/dL (3.5-5.0) Globulin 4.0 g/dL (2.3-3.5) Albumin/Globulin Ratio 1.0 (0.8-2.0) Assessment & Plan Last Vital Signs Date Time Temp Pulse Resp B/P (MAP) Pulse Ox O2 Delivery O2 Flow Rate FiO2 10/18/19 14:41 95 21 132/72 99 Room Air 10/18/19 14:07 98.2 Home Meds Active Scripts Ondansetron Hcl* (ZOFRAN*) 4 Mg Tablet, 4 MG PO Q6HR PRN for NAUSEA, #10 Prov:NAHUM LEE MD 10/15/19 Reported Medications Aspirin (ASPIR 81) 81 Mg Tablet.dr, 81 MG PO QAM 07/09/13 Losartan Potassium (COZAAR) 50 Mg Tab, 50 MG PO QPM 07/09/13 Glipizide (GLUCOTROL) 10 Mg Tablet, 10 MG PO QAM 07/09/13 Isosorbide Mononitrate (IMDUR) 30 Mg Tabcr, 30 MG PO QAM 07/09/13 Carvedilol (COREG) 3.125 Mg Tab, 3.125 MG PO BID 07/09/13 DARREN STOREY DO Oct 18, 2019 16:14
--- OUTSIDE RECORDS SUMMARY | 2019-10-18 16:19 | XMS REPORT | Continuity of Care Document ---
Author Author [facility] t Organization [facility] Address [address] [place] [address] Phone Unavailable Care Team Providers Care Journal Clerk Name Role Phone NO, PCP PCP Unavailable Randi STOREY Attphys Unavailable MATTHEWSJAMILAH Admphys Unavailable Payers Payer Name Policy Type Policy Number Effective Date Expiration Date [facility] [id number] 2019 00:00:00 [facility] Problems Condition Name Condition Details Condition Category Status Onset Date Resolution Date Last Treatment Date Treating Clinician Comments Source Hypovolemia Problem Active [facility] Dehydration Problem Active [facility] Nausea and vomiting Problem Active [facility] Hyperglycemia Problem Active I [facility] Hypertension Problem Active [facility] Diabetes mellitus Problem Active [facility] Allergies, Adverse Reactions, Alerts Allergy Name Allergy Type Status Severity Reaction(s) Onset Date Inacti ve Date Treating Clinician Comments Source iodine Allergy to substance Active 2017-11-09 00:00:00 [facility] Codeine Allergy to substance Active 2017-11-09 00:00:00 [facility] iodine DA Active U 2008-09-08 00:00:00 [facility] codeine DA Active U 2008-09-08 00:00:00 [facility] Social History Social Habit Start Date Stop Date Quantity Comments Source Sex Assigned At 1960 00:00:00 1960 00:00:00 Female [facility] Medications Ordered Medication Name Filled Medication Name Start Date Stop Da te Current Medication? Ordering Clinician Indication Dosage Frequency Signature (SIG) Comments Components Source Ondansetron Hcl (Zofran*) 4 Mg TABLET Ondansetron Hcl (Zofra n*) 4 Mg TABLET 2019-10-15 15:26:00 Yes 4 Every 6 Hours as n eeded for Nausea [facility] Aspirin (Aspir 81) 81 Mg TABLET. Aspirin (Aspir 81) 81 Mg TABLET. Yes 81 Every Morning [facility] Carvedilol (Coreg) 3.125 Mg TAB Carvedilol (Coreg) 3.125 Mg TAB Yes 3.125 Twice A Day [facility] Glipizide (Glucotrol) 10 Mg TABLET Glipizide (Glucotrol) 10 Mg TABLET Yes 10 Every Morning [facility] Isosorbide Mononitrate (Imdur) 30 Mg TABCR Isosorbide Mononitrate (Imdur) 30 Mg TABCR Yes 30 Every Morning [facility] Losartan Potassium (Cozaar) 50 Mg TAB Losartan Potassium (Cozaar) 5 0 Mg TAB Yes 50 Every Evening [facility] Vital Signs Vital Name Observation Time Observation Value Comments Source Body Temperature 2019-10-15 16:09:00 98.9 [degF] [facility] Weight 2019-10-15 14:27:00 168 [lb_av] [facility] BMI (Body Mass Index) 2019-10-15 14:27:00 26.3 kg/m2 [facility] Procedures Procedure Date / Time Performed Performing Clinician [facility] e X-ray of chest, two views 2019-04-03 00:00:00 DARREN STOREY CH, I [facility] Plan of Care Planned Activity Planned Date Details Comments Source Instructions Clear Liquid Diet [facility] Instructions Hyperglycemia [facility] Instructions Vomiting - Adult [facility] Encounters Start Date/Time End Date/Time Encounter Type Admission Type [facility] Facility Care Department Encounter ID Source 2019-10-15 14:35:00 2019-10-15 16:09:00 Departed Emergency Room [facility] [id number] [facility] dical [place] 2019-04-03 19:12:00 2019-04-03 22:52:00 Departed Emergency Room 1 DARREN STOREY [facility] [id number] I [facility] 2017-11-09 13:08:00 2017-11-09 14:50:00 Departed Emergency Room [facility] [id number] [facility] Results Test Description Test Time Test Comments Results Result Comments Source CT BRAIN WO 2019-10-18 16:01:00 [place] [address] Patient Name: BAILEE MARCUM MR #: [id number] : 1960 Age/Sex: 59/F Req #: [id number] Adm Physician: Ordered by: DARREN STOREY DO Report #: [id number] Location: ER Room/Bed: Procedure: [id number] CT/CT BRAIN WO Exam Date: 10/18/19 Exam Time: 1545 REPORT STATUS: Signed Exam: Head CT without contrast History: Dizziness, nausea, vomiting Comparison studies: None Technique: Axial images were obtained from the skull base to the vertex. Coronal and sagittal images reconstructed from the axial data. Dose modulation, iterative reconstruction, and/or weight based adjustment of the mA/kV was utilized to reduce the radiation dose to as low as reasonably achievable. Radiation dose: Total DLP: 832.18 mGy*cm. Estimated effective dose: DLP x 0.015 Intravenous contrast: None Findings: Scalp: No abnormalities. Bones: No fractures, blastic or lytic lesions. Brain sulci: Appropriate for age. Ventricles: Normal in size and configuration. No hydrocephalus. Extra-axial spaces: No masses, no fluid collection. Parenchyma: No abnormal densities. No masses, hemorrhage, acute or chronic vascular insults. Sellar/suprasellar region: No abnormalities. Craniocervical junction: Patent foramen magnum. No Chiari one malformation. Incidental findings: Atherosclerotic calcifications in the carotid siphons.. IMPRESSION: No acute intracranial abnormalities. Signed by: Dr. Lashae Wong M.D. on 10/18/2019 4:03 PM Dictated By: LASHAE WONG MD 1603 Transcribed By: ALIN on 10/18/19 1603 COPY TO: DARREN STOREY DO CHEST 2 VIEWS 2019-10-18 15:01:00 [place] [address] Patient Name: BAILEE MARCUM MR #: [id number] : 1960 Age/Sex: 59/F Req #: [id number] Adm Physician: Ordered by: DARREN STOREY DO Report #: [id number] Location: ER Room/Bed: Procedure: [id number] DX/CHEST 2 VIEWS Exam Date: 10/18/19 Exam Time: 1445 REPORT STATUS: Signed EXAMINATION: CHEST 2 VIEWS INDICATION: Nausea and vomiting. Dizziness. Weakness weak [id number] COMPARISON: April 03, 2019 FINDINGS: TUBES and LINES: None. LUNGS: Lungs are well inflated. Perihilar peribronchial hazy opacity could be due to bronchitis. No focal lung consolidation. PLEURA: No pleural effusion or pneumothorax. HEART AND MEDIASTINUM: The cardiomediastinal silhouette is unremarkable. BONES AND SOFT TISSUES: No acute osseous lesion. Soft tissues are unremarkable. UPPER ABDOMEN: No free air under the diaphragm. IMPRESSION: Perihilar peribronchial hazy opacity could be due to bronchitis. No focal lung consolidation. Signed by: Dr. Ann Marie Bond M.D. on 10/18/2019 3:02 PM Dictated By: ANN MARIE BOND MD, MD 150 Transcribed By: ALIN on 10/18/19 1502 COPY TO: DARREN STOREY DO GLUBED 2019-08-03 11:43:00 Test Item GLUBED (test code = GLUBED) 184 mg/dL 74-106 H Performed by certified bullet casting operator at [facility] [id number] 07:26:00* Test Item Value Reference Range Interpretation Comments GLUBED (test code = GLUBED) 130 mg/dL 74-106 H Performed by certified bullet casting operator at [facility] [id number] 21:09:00* Test Item Value Reference Range Interpretation Comments GLUBED (test code = GLUBED) 231 mg/dL 74-106 H Performed by certified bullet casting operator at [facility] [id number] 15:58:00* Test Item Value Reference Range Interpretation Comments GLUBED (test code = GLUBED) 269 mg/dL 74-106 H Performed by certified bullet casting operator at [facility] [id number] 14:23:00* Test Item Value Reference Range Interpretation Comments GLYCOSYLATED HEMOGLOBIN (HA1C) (test code = GLYHGB) 12.8 % HbA1 SUGGESTED DIAGNOSIS: HbA1C (%) Diabetic >6.4Prediabetes 5.7 - 6.4Normal <5.7 ESTIMATED AVERAGE GLUCOSE (test code = EAG) 321 MG/DL THYROID STIMULATING [id number] 14:18:00* Test Item Value Reference Range Interpretation Comments THYROID STIMULATING HORMONE (test code = TSH) 0.890 uIU/mL 0.36-3.7 4 N TSH REFERENCE RANGES: EUTHYROID: 0.35 - 4.3 mIU/mL HYPO : > 5.5 mIU/mL HYPER : < 0.35 mIU/mL [id number] 13:15:00* Test Item Value Reference Range Interpretation Comments TROPONIN-I (test code = TROPI) 0.122 ng/mL 0-0.045 COMMENTS TO ROCK CRUSHER OPERATOR: COLLECT 3 HOURS AFTER PREVIOUS [id number] 11:54:00* Test Item Value Reference Range Interpretation Comments GLUBED (test code = GLUBED) 207 mg/dL 74-106 H Performed by certified bullet casting operator at [facility] [id number] 09:58:00* Test Item Value Reference Range Interpretation Comments TROPONIN-I (test code = TROPI) 0.150 ng/mL 0-0.045 HH COMMENTS TO ROCK CRUSHER OPERATOR: COLLECT 3 HOURS AFTER PREVIOUS SAMPLEBASIC METABOLIC [id number] 09:57:00* Test Item Value Reference Range Interpretation [...] This LDL result is a direct measurement.========= [id number] 09:57:00* Test Item Value Reference Range Interpretation Comments MAGNESIUM (test code = MAG) 1.9 mg/dL 1.8-2.4 N BASIC METABOLIC [id number] 09:49:00* Test Item Value Reference Range Interpretation [...] LDL (test code = LDL) mg/dL 100-129 [id number] 09:49:00* Test Item Value Reference Range Interpretation Comments MAGNESIUM (test code = MAG) mg/dL 1.8-2.4 CBC W/AUTO [id number] 09:21:00* Test Item Value Reference Range Interpretation [...] K/mm3 0.0-0.1 N DRUGS OF ABUSE SCREEN [id number] 07:53:00* Test Item Value Reference Range Interpretation [...] NEGATIVE <300 ng/mL DRUGS OF ABUSE SCREEN [id number] 07:06:00* Test Item Value Reference Range Interpretation [...] METHADONE (test code = METHAURN) <300 ng/mL [id number] 05:26:00* Test Item Value Reference Range Interpretation Comments GLUBED (test code = GLUBED) 267 mg/dL 74-106 H Performed by certified bullet casting operator at [facility] HEPATIC FUNCTION [id number] 01:53:00* Test Item Value Reference Range Interpretation [...] reference range due to change in reagent. [id number] 01:53:00* Test Item Value Reference Range Interpretation Comments MAGNESIUM (test code = MAG) 1.9 mg/dL 1.8-2.4 N TSH REFLEX TO [id number] 01:53:00* Test Item Value Reference Range Interpretation Comments TSH REFLEX TO FT4 (test code = TSHREFLEX) 0.4 0.4-5.5 N PROTHROMBIN [id number] 01:18:00* Test Item Value Reference Range Interpretation [...] (2.5-3.5) IS PATIENT ON ANTICOAGULANTS? NTHROMBOPLASTIN TIME [id number] 01:18:00* Test Item Value Reference Range Interpretation Comments THROMBOPLASTIN TIME PARTIAL (test code = PTT) 26.7 seconds 23.0-37. 0 N IS PATIENT ON ANTICOAGULANTS? [id number] 01:17:00* Test Item Value Reference Range Interpretation Comments GLYCOSYLATED HEMOGLOBIN (HA1C) (test code = GLYHGB) 12.3 % HbA1 SUGGESTED DIAGNOSIS: HbA1C (%) Diabetic >6.4Prediabetes 5.7 - 6.4Normal <5.7 ESTIMATED AVERAGE GLUCOSE (test code = EAG) 306 MG/DL BASIC METABOLIC [id number] 21:24:00* Test Item Value Reference Range Interpretation [...] code = CA) 8.9 mg/dL 8.5-10.1 N [id number] 21:24:00* Test Item Value Reference Range Interpretation Comments TROPONIN-I (test code = TROPI) 0.112 ng/mL 0-0.045 Results called to [id number] by [facility] 08/01/19 2124Critical results verified and read back by Nurse? Y BASIC METABOLIC [id number] 21:09:00* Test Item Value Reference Range Interpretation [...] code = CA) 8.9 mg/dL 8.5-10.1 N [id number] 21:09:00* Test Item Value Reference Range Interpretation Comments TROPONIN-I (test code = TROPI) ng/mL 0-0.045 URINALYSIS [id number] 21:09:00* Test Item Value Reference Range Interpretation [...] #/LPF NONE Urine Source? Clean CatchBASIC METABOLIC [id number] 21:08:00* Test Item Value Reference Range Interpretation [...] CALCIUM (test code = CA) mg/dL 8.5-10.1 [id number] 21:08:00* Test Item Value Reference Range Interpretation Comments TROPONIN-I (test code = TROPI) ng/mL 0-0.045 CBC W/O [id number] 20:52:00* Test Item Value Reference Range Interpretation [...] fL 6.7-11.0 H - XR CHEST 1 [id number] 18:39:00 FAX: Eduardo Johnson DO [place]: [address] St: REG Name: BAILEE [facility] : [birth year] Age/S: 59/F [address] [facility] Unit #: [id number] Loc: [place] [address] Phys: Eduardo Johnson DO Acct: [id number] Dis Date: Status: REG ER PHONE #: [phone] Exam Date: 08/01/20191826 FAX #: [phone] Reason: CHEST PAIN EXAMS: CPT CODE: [id number] XR CHEST 1 V 40649 EXAM: Chest X-ray, 1 view; CLINICAL HISTORY: Chest pain; FINDINGS: The lungs are clear, no infiltrates, no edema; no effusions; no pneumothorax; n ormal cardiomediastinal silhouette. IMPRESSION: Normal chest x-ray. Location code[facility] Signed by Azra Maier on 08/01/2019 pat gunter 1838 Reported and signed by: Felipe Alexis ch, M.D. CC: Eduardo Johnson DO Technologist: Ángela Tobar) Trnscrd Date/Time/By: 08/01/2019 (1838) : By: RajGRW Orig Print D/T: S: 08/01/2019 (1841) PAGE 1 Signed Report Capillary blood glucose measurement by glucometer (mass/volume)2019-04-03 22:04:00* Test Item Value Reference Range Interpretation Comments Bedside Glucose (test code = 78388-9) 280 70-120 Meter ID: [id number] [facility] 2019-04-03 22:04:00 [place] [address] Patient Name: BAILEE MARCUM MR #: [id number] : 1960 Age/Sex: 59/F Req #: [id number] Adm Physician: Ordered by: DARREN STOREY DO Report #: [id number] Location: ER Room/Bed: Procedure: [id number] DX/CHEST [...] acute thoracic abnormality. Signed by: Dr. Nessa Paez MD on 04/03/2019 10:07 PM Dictated By: NESSA PAEZ MD 06 Transcribed By: ALIN on 2206 COPY TO: DARREN STOREY DO Creatine Kinase MB 2019-04-03 21:32:00* Test Item Value Reference Range Interpretation Comments Creatine Kinase MB (test code = 99375-3) 0.90 0-5.0 [facility] CenterTroponin [id number] 21:32:00* Test Item Value Reference Range Interpretation Comments Troponin I (test code = ARA6276) < 0.001 0-0.300 [facility] [id number] 21:27:00* Test Item Value Reference Range Interpretation Comments Sodium Level (test code = 2951-2) 134 136-145 L [facility] CenterPotassium [id number] 21:27:00* Test Item Value Reference Range Interpretation Comments Potassium Level (test code = 2823-3) 3.9 3.5-5.1 [facility] CenterChloride [id number] 21:27:00* Test Item Value Reference Range Interpretation Comments Chloride Level (test code = 2075-0) 100 98-107 [facility] CenterCarbon Dioxide [id number] 21:27:00* Test Item Value Reference Range Interpretation Comments Carbon Dioxide Level (test code = 2028-9) 23 22-29 [facility] CenterAnion [id number] 21:27:00* Test Item Value Reference Range Interpretation Comments Anion Gap (test code = 56668-9) 14.9 8-16 [facility] CenterBlood Urea [id number] 21:27:00* Test Item Value Reference Range Interpretation Comments Blood Urea Nitrogen (test code = 3094-0) 11 7-26 [facility] CenterCreatinine2020-02-18 21:27:00* Test Item Value Reference Range Interpretation Comments Creatinine (test code = 2160-0) 1.03 0.57-1.11 [facility] CenterBUN/Creatinine [id number] 21:27:00* Test Item Value Reference Range Interpretation Comments BUN/Creatinine Ratio (test code = 3097-3) 11 6-25 [facility] CenterEstimat Glomerular Filtration Rate 2019-04-03 21:27:00* Test Item Value Reference Range Interpretation Comments Estimat Glomerular Filtration Rate (test code = 464289536) > 60 >60 Ranges were taken from the National Kidney Disease Education Program and the [facility] Foundation literature.Reference ranges:60 or greater: Opezrq05-40 ( for 3 consecutive months): Chronic kidney disease 15 or less: Kidney failureBaylor University Medical CenterGlucose Ulljw6323-02-79 21:27:00* Test Item Value Reference Range Interpretation Comments Glucose Level (test code = QXY7633) 561 74-118 Results repeated and called to at 2126 on 04/03/19 by Susan Bennett. Read b ack and verified.[facility] CenterCalcium Xdjjj3418-93-30 21:27:00* Test Item Value Reference Range Interpretation Comments Calcium Level (test code = 15659-4) 9.4 8.4-10.2 [facility] CenterTotal Eixqlkjmb4791-10-53 21:27:00* Test Item Value Reference Range Interpretation Comments Total Bilirubin (test code = 1975-2) 0.3 0.2-1.2 [facility] CenterAspartate Amino Transf (AST/SGOT) 2019-04-03 21:27:00* Test Item Value Reference Range Interpretation Comments Aspartate Amino Transf (AST/SGOT) (test code = Aspartate Amino Transf (AST/SGOT)) 15 5-34 [facility] CenterAlanine Aminotransferase (ALT/SGPT) 2019-04-03 21:27:00* Test Item Value Reference Range Interpretation Comments Alanine Aminotransferase (ALT/SGPT) (test code = 1742-6) 20 0-55 [facility] CenterTotal Flyeupe3539-35-70 21:27:00* Test Item Value Reference Range Interpretation Comments Total Protein (test code = 2885-2) 7.0 6.5-8.1 [facility] CenterAlbumin2020-02-18 21:27:00* Test Item Value Reference Range Interpretation Comments Albumin (test code = 1751-7) 3.8 3.5-5.0 [facility] CenterGlobulin2020-02-18 21:27:00* Test Item Value Reference Range Interpretation Comments Globulin (test code = 19617-8) 3.2 2.3-3.5 [facility] CenterAlbumin/Globulin Ywqik8685-50-51 21:27:00 * Test Item Value Reference Range Interpretation Comments Albumin/Globulin Ratio (test code = 1759-0) 1.2 0.8-2.0 [facility] CenterAlkaline Rmqmgosfudf4991-49-27 21:27:00* Test Item Value Reference Range Interpretation Comments Alkaline Phosphatase (test code = 6768-6) 72 40-150 [facility] CenterCreatine Xhbszb6739-57-09 21:27:00* Test Item Value Reference Range Interpretation Comments Creatine Kinase (test code = 2157-6) 48 29-168 [facility] CenterWhite Blood Pxqpy2208-73-51 20:45:00* Test Item Value Reference Range Interpretation Comments White Blood Count (test code = 6690-2) 6.34 4.8-10.8 [facility] CenterRed Blood Kfiei8667-17-00 20:45:00* Test Item Value Reference Range Interpretation Comments Red Blood Count (test code = 789-8) 4.68 3.6-5.1 [facility] CenterHemoglobin2020-02-18 20:45:00* Test Item Value Reference Range Interpretation Comments Hemoglobin (test code = 84402-6) 13.7 12.0-16.0 [facility] CenterHematocrit2020-02-18 20:45:00* Test Item Value Reference Range Interpretation Comments Hematocrit (test code = 4544-3) 42.3 34.2-44.1 [facility] CenterMean Corpuscular Nujpcc4783-49-86 20:45:00* Test Item Value Reference Range Interpretation Comments Mean Corpuscular Volume (test code = 787-2) 90.4 81-99 [facility] CenterMean Corpuscular Mdqrgxgmkv7292-15-91 20:45:00* Test Item Value Reference Range Interpretation Comments Mean Corpuscular Hemoglobin (test code = 785-6) 29.3 28-32 [facility] CenterMean Corpuscular Hemoglobin Concent 2019-04-03 20:45:00* Test Item Value Reference Range Interpretation Comments Mean Corpuscular Hemoglobin Concent (test code = 786-4) 32.4 31-35 [facility] CenterRed Cell Distribution Wqzow6075-60-04 20:45:00* Test Item Value Reference Range Interpretation Comments Red Cell Distribution Width (test code = 90483-1) 12.1 11.7 -14.4 [facility] CenterPlatelet Djsiy2500-00-53 20:45:00* Test Item Value Reference Range Interpretation Comments Platelet Count (test code = 777-3) 257 140-360 [facility] CenterNeutrophils (%) (Auto)2019-04-03 20:45:00 * Test Item Value Reference Range Interpretation Comments Neutrophils (%) (Auto) (test code = 32563-5) 44.3 38.7-80.0 [facility] CenterLymphocytes (%) (Auto)2019-04-03 20:45:00 * Test Item Value Reference Range Interpretation Comments Lymphocytes (%) (Auto) (test code = 736-9) 42.0 18.0-39.1 H [facility] CenterMonocytes (%) (Auto)2019-04-03 20:45:00* Test Item Value Reference Range Interpretation Comments Monocytes (%) (Auto) (test code = 5905-5) 10.7 4.4-11.3 [facility] CenterEosinophils (%) (Auto)2019-04-03 20:45:00 * Test Item Value Reference Range Interpretation Comments Eosinophils (%) (Auto) (test code = 713-8) 2.2 0.0-6.0 [facility] CenterBasophils (%) (Auto)2019-04-03 20:45:00* Test Item Value Reference Range Interpretation Comments Basophils (%) (Auto) (test code = 706-2) 0.5 0.0-1.0 [facility] CenterIM GRANULOCYTES %2019-04-03 20:45:00* Test Item Value Reference Range Interpretation Comments IM GRANULOCYTES % (test code = IM GRANULOCYTES %) 0.3 0.0- 1.0 [facility] CenterNeutrophils # (Auto)2019-04-03 20:45:00* Test Item Value Reference Range Interpretation Comments Neutrophils # (Auto) (test code = 751-8) 2.8 2.1-6.9 [facility] CenterLymphocytes # (Auto)2019-04-03 20:45:00* Test Item Value Reference Range Interpretation Comments Lymphocytes # (Auto) (test code = 12878-7) 2.7 1.0-3.2 [facility] CenterMonocytes # (Auto)2019-04-03 20:45:00* Test Item Value Reference Range Interpretation Comments Monocytes # (Auto) (test code = 742-7) 0.7 0.2-0.8 [facility] CenterEosinophils # (Auto)2019-04-03 20:45:00* Test Item Value Reference Range Interpretation Comments Eosinophils # (Auto) (test code = 711-2) 0.1 0.0-0.4 [facility] CenterBasophils # (Auto)2019-04-03 20:45:00* Test Item Value Reference Range Interpretation Comments Basophils # (Auto) (test code = 704-7) 0.0 0.0-0.1 [facility] CenterAbsolute Immature Granulocyte (auto 2019-04-03 20:45:00* Test Item Value Reference Range Interpretation Comments Absolute Immature Granulocyte (auto (marly t code = Absolute Immature Granulocyte (auto) 0.02 0-0.1 [facility] CenterProthrombin [id number] 20:45:00* Test Item Value Reference Range Interpretation Comments Prothrombin Time (test code = 5902-2) 12.8 11.9-14.5 [facility] CenterProthromb Time International Ratio 2019-04-03 20:45:00* Test Item Value Reference Range Interpretation Comments Prothromb Time International Ratio (test code = 6301-6) 0.91 Oral Anticoagulant Therapy INR Values:1. Low Intensity Therapy 1.5 - 2.02 . Moderate Intensity Therapy 2.0 - 3.03. High Intensity Therapy(1) 2.5 - 3. 54. High Intensity Therapy(2) 3.0 - 4.05. Panic Value INR > 5.0 [facility] CenterActivated Partial Thromboplast Time 2019-04-03 20:45:00* Test Item Value Reference Range Interpretation Comments Activated Partial Thromboplast Time (test code = 46358-2) 27.5 23.8-35.5 [facility] CenterBlood leukocytes automated count (number/volume)2019-04-03 19:10:00* Test Item Value Reference Range Interpretation Comments White Blood Count (test code = 6690-2) 6.34 4.8-10.8 [facility] CenterBlood erythrocytes automated count (number/volume)2019-04-03 19:10:00* Test Item Value Reference Range Interpretation Comments Red Blood Count (test code = 789-8) 4.68 3.6-5.1 [facility] CenterBlood hemoglobin measurement (moles/volume)2019-04-03 19:10:00* Test Item Value Reference Range Interpretation Comments Hemoglobin (test code = 86277-8) 13.7 12.0-16.0 [facility] CenterAutomated blood hematocrit (volume fraction)2019-04-03 19:10:00* Test Item Value Reference Range Interpretation Comments Hematocrit (test code = 4544-3) 42.3 34.2-44.1 [facility] CenterAutomated erythrocyte mean corpuscular xggczv8732-36-21 19:10:00* Test Item Value Reference Range Interpretation Comments Mean Corpuscular Volume (test code = 787-2) 90.4 81-99 [facility] CenterAutomated erythrocyte mean corpuscular hemoglobin (mass per erythrocyte)2019-04-03 19:10:00* Test Item Value Reference Range Interpretation Comments Mean Corpuscular Hemoglobin (test code = 785-6) 29.3 28-32 [facility] CenterAutomated erythrocyte mean corpuscular hemoglobin concentration measurement (mass/volume)2019-04-03 19:10:00* Test Item Value Reference Range Interpretation Comments Mean Corpuscular Hemoglobin Concent (test code = 786-4) 32.4 31-35 [facility] [id number]-[id number] 19:10:00* Test Item Value Reference Range Interpretation Comments Red Cell Distribution Width (test code = 71920-7) 12.1 11.7 -14.4 [facility] CenterAutomated blood platelet count (count/volume)2019-04-03 19:10:00* Test Item Value Reference Range Interpretation Comments Platelet Count (test code = 777-3) 257 140-360 [facility] CenterAutomated blood segmented neutrophil count as percentage of total qsfwfdrltq2617-88-25 19:10:00* Test Item Value Reference Range Interpretation Comments Neutrophils (%) (Auto) (test code = 91406-5) 44.3 38.7-80.0 [facility] CenterAutomated blood lymphocyte count as percentage ot total onbrmklweh8188-19-29 19:10:00* Test Item Value Reference Range Interpretation Comments Lymphocytes (%) (Auto) (test code = 736-9) 42.0 18.0-39.1 [facility] CenterAutomated blood monocyte count as percentage of total stevvxqdqz9347-24-03 19:10:00* Test Item Value Reference Range Interpretation Comments Monocytes (%) (Auto) (test code = 5905-5) 10.7 4.4-11.3 [facility] CenterAutomated blood eosinophil count as percentage of total zklyfjtgcp3381-94-99 19:10:00* Test Item Value Reference Range Interpretation Comments Eosinophils (%) (Auto) (test code = 713-8) 2.2 0.0-6.0 [facility] CenterAutomated blood basophil count as percentage of total kjvsrhkuzd2793-87-24 19:10:00* Test Item Value Reference Range Interpretation Comments Basophils (%) (Auto) (test code = 706-2) 0.5 0.0-1.0 [facility] CenterFluoroscopic procedure less than one hour rcryluup0814-52-39 19:10:00* Test Item Value Reference Range Interpretation Comments IM GRANULOCYTES % (test code = IM GRANULOCYTES %) 0.3 0.0- 1.0 [facility] CenterAutomated blood neutrophil count 2019-04-03 19:10:00* Test Item Value Reference Range Interpretation Comments Neutrophils # (Auto) (test code = 751-8) 2.8 2.1-6.9 [facility] CenterBlood lymphocytes count (number/volume) 2019-04-03 19:10:00* Test Item Value Reference Range Interpretation Comments Lymphocytes # (Auto) (test code = 91354-4) 2.7 1.0-3.2 [facility] CenterBlood monocytes automated count (number/volume)2019-04-03 19:10:00* Test Item Value Reference Range Interpretation Comments Monocytes # (Auto) (test code = 742-7) 0.7 0.2-0.8 [facility] CenterAutomated blood eosinophil count 2019-04-03 19:10:00* Test Item Value Reference Range Interpretation Comments Eosinophils # (Auto) (test code = 711-2) 0.1 0.0-0.4 [facility] CenterAutomated blood basophil count (count/volume)2019-04-03 19:10:00* Test Item Value Reference Range Interpretation Comments Basophils # (Auto) (test code = 704-7) 0.0 0.0-0.1 [facility] CenterFluoroscopic procedure less than one hour nqpuyqqx7345-88-28 19:10:00* Test Item Value Reference Range Interpretation Comments Absolute Immature Granulocyte (auto (marly t code = Absolute Immature Granulocyte (auto) 0.02 0-0.1 [facility] CenterProthrombin time (PT) in platelet poor plasma by coagulation qwjwa5061-58-95 19:10:00* Test Item Value Reference Range Interpretation Comments Prothrombin Time (test code = 5902-2) 12.8 11.9-14.5 [facility] CenterINR in Platelet poor plasma by Coagulation pewmu6793-83-72 19:10:00* Test Item Value Reference Range Interpretation Comments Prothromb Time International Ratio (test code = 6301-6) 0.91 Oral Anticoagulant Therapy INR Values:1. Low Intensity Therapy 1.5 - 2.02 . Moderate Intensity Therapy 2.0 - 3.03. High Intensity Therapy(1) 2.5 - 3. 54. High Intensity Therapy(2) 3.0 - 4.05. Panic Value INR > 5.0 [facility] CenterActivated partial thromboplastin time (aPTT) in platelet poor plasma by coagulation dzpgu1783-03-50 19:10:00* Test Item Value Reference Range Interpretation Comments Activated Partial Thromboplast Time (test code = 44100-8) 27.5 23.8-35.5 [facility] sodium measurement (moles/volume)2019-04-03 19:10:00* Test Item Value Reference Range Interpretation Comments Sodium Level (test code = 2951-2) 134 136-145 [facility] potassium measurement (moles/volume)2019-04-03 19:10:00* Test Item Value Reference Range Interpretation Comments Potassium Level (test code = 2823-3) 3.9 3.5-5.1 [facility] chloride measurement (moles/volume)2019-04-03 19:10:00* Test Item Value Reference Range Interpretation Comments Chloride Level (test code = 2075-0) 100 98-107 [facility] carbon dioxide, total measurement (moles/volume)2019-04-03 19:10:00* Test Item Value Reference Range Interpretation Comments Carbon Dioxide Level (test code = 2028-9) 23 22-29 [facility] anion [id number] 19:10:00* Test Item Value Reference Range Interpretation Comments Anion Gap (test code = 70353-6) 14.9 8-16 [facility] urea nitrogen measurement (mass/volume)2019-04-03 19:10:00* Test Item Value Reference Range Interpretation Comments Blood Urea Nitrogen (test code = 3094-0) 11 7-26 [facility] creatinine measurement (mass/volume)2019-04-03 19:10:00* Test Item Value Reference Range Interpretation Comments Creatinine (test code = 2160-0) 1.03 0.57-1.11 [facility] urea nitrogen/creatinine mass gybfm3954-79-68 19:10:00* Test Item Value Reference Range Interpretation Comments BUN/Creatinine Ratio (test code = 3097-3) 11 6-25 [facility] CenterEstimated glomerular filtration rate (GFR) fzcbssxedoooo6386-80-37 19:10:00* Test Item Value Reference Range Interpretation Comments Estimat Glomerular Filtration Rate (test code = 506566040) > 60 >60 Ranges were taken from the National Kidney Disease Education Program and the [facility] Foundation literature.Reference ranges:60 or greater: Haipnj68-62 ( for 3 consecutive months): Chronic kidney disease 15 or less: Kidney failureB[facility] Medical CenterGlucose qtqqgdbalya2531-17-05 19:10:00* Test Item Value Reference Range Interpretation Comments Glucose Level (test code = KHL8143) 561 74-118 Results repeated and called to at 2126 on 04/03/19 by Susan Bennett. Read b ack and verified.[facility] or plasma calcium measurement (mass/volume)2019-04-03 19:10:00* Test Item Value Reference Range Interpretation Comments Calcium Level (test code = 18483-2) 9.4 8.4-10.2 [facility] or plasma total bilirubin measurement (mass/volume)2019-04-03 19:10:00* Test Item Value Reference Range Interpretation Comments Total Bilirubin (test code = 1975-2) 0.3 0.2-1.2 [facility] CenterFluoroscopic procedure less than one hour ieyobvus4300-22-59 19:10:00* Test Item Value Reference Range Interpretation Comments Aspartate Amino Transf (AST/SGOT) (test code = Aspartate Amino Transf (AST/SGOT)) 15 5-34 [facility]ere[facility] or plasma alanine aminotransferase measurement (enzymatic activity/volume)2019-04-03 19:10:00* Test Item Value Reference Range Interpretation Comments Alanine Aminotransferase (ALT/SGPT) (test code = 1742-6) 20 0-55 [facility] protein measurement (mass/volume)2019-04-03 19:10:00* Test Item Value Reference Range Interpretation Comments Total Protein (test code = 2885-2) 7.0 6.5-8.1 [facility] plasma albumin measurement (mass/volume)2019-04-03 19:10:00* Test Item Value Reference Range Interpretation Comments Albumin (test code = 1751-7) 3.8 3.5-5.0 [facility] CenterPlasma globulin measurement (mass/volume) 2019-04-03 19:10:00* Test Item Value Reference Range Interpretation Comments Globulin (test code = 48688-7) 3.2 2.3-3.5 [facility]ere[facility] plasma albumin/globulin mass ijeey3919-69-23 19:10:00* Test Item Value Reference Range Interpretation Comments Albumin/Globulin Ratio (test code = 1759-0) 1.2 0.8-2.0 [facility]rum or plasma alkaline phosphatase measurement (enzymatic activity/volume)2019-04-03 19:10:00* Test Item Value Reference Range Interpretation Comments Alkaline Phosphatase (test code = 6768-6) 72 40-150 [facility]ererum or plasma creatine kinase measurement (enzymatic activity/volume)2019-04-03 19:10:00* Test Item Value Reference Range Interpretation Comments Creatine Kinase (test code = 2157-6) 48 29-168 [facility]ererum or plasma creatine kinase MB measurement (mass/volume)2019-04-03 19:10:00* Test Item Value Reference Range Interpretation Comments Creatine Kinase MB (test code = 49470-7) 0.90 0-5.0 [facility] CenterTroponin I measurement by highly sensitive enzyme zhedjtyfepl7175-95-98 19:10:00* Test Item Value Reference Range Interpretation Comments Troponin I (test code = 65405-4) < 0.001 0-0.300 [facility]
--- NOTE | 2019-10-18 17:09 | NUR ---
Recvd patient from ER, Alert with no distress, Dr Randi Martinez is here, call light in reach, bed alarm ON
[2019-10-18 17:35] VITALS: BP 132/80
[2019-10-18 17:37] VITALS: BP 132/80
[2019-10-18] MEDS: METOCLOPRAMIDE HCL 10 MG/2ML VIAL IV SCH ×2 (17:48→23:54)
[2019-10-18] MEDS: SODIUM CHLORIDE 0.9% 1000ML 1,000 ML IV SCH (17:48)
--- NOTE | 2019-10-18 19:00 | NUR ---
Resumed care of patient. Patient awake and resting in bed, no s/s of distress at this time. Bed locked and in lowest position, side rails upx3, call light placed within reach. Patient instructed to call for assistance if needed, verbalized understanding. All safety measures in place.
[2019-10-18] MEDS ORDERED: OLMESARTAN MEDO40 MG PO (19:48)
[2019-10-18] MEDS ORDERED: METOCLOPRAMIDE H5 MG PO (19:48)
[2019-10-18] MEDS ORDERED: AMLODIPINE BESYL5 MG PO (19:48)
[2019-10-18] MEDS ORDERED: METOPROLOL SUCC50 MG PO (19:48)
[2019-10-18] MEDS ORDERED: METFORMIN HCL1000 MG PO (19:48)
[2019-10-18 20:13] VITALS: BP 117/85
[2019-10-18 21:06] VITALS: BP 117/85
[2019-10-18 23:30] VITALS: BP 146/92
[2019-10-18] MEDS ORDERED: ACETAMINOPHEN 1000 MG/100 ML IV STA (23:42)
--- NOTE | 2019-10-18 23:43 | NUR ---
Dr. Collin Martinez here to see patient. notified of patient's fever of 102.5. Received orders for IV Tylenol 1000 mg Q6H PRN.
[2019-10-19] VITALS (9 sets, daily range): BP systolic 108–145; BP diastolic 64–96
--- NOTE | 2019-10-19 00:42 | NUR ---
Received orders from Dr. Collin Martinez to give patient 500ml NS bolus.
[2019-10-19] MEDS ORDERED: SODIUM CHLORIDE 0.9% 500ML 500 ML IV ONE (00:45)
[2019-10-19] MEDS: SODIUM CHLORIDE 0.9% 1000ML 1,000 ML IV SCH ×2 (04:23→15:07)
[2019-10-19] MEDS: METOCLOPRAMIDE HCL 10 MG/2ML VIAL IV SCH ×3 (05:37→17:30)
[2019-10-19 05:47] LABS: BASOPHILS % 0.2 % (0.0-1.0); HEMATOCRIT 38.2 % (34.2-44.1); HEMOGLOBIN 12.5 g/dL (12.0-16.0); LYMPHOCYTES # (AUTO) 1.4 (1.0-3.2); LYMPHOCYTES % 15.4 % (18.0-39.1); MEAN CORPUSCULAR HEMOGLOBIN 29.3 pg (28-32); MEAN CORPUSCULAR HGB CONC 32.7 g/dL (31-35); MEAN CORPUSCULAR VOLUME 89.7 fL (81-99); MONOCYTES # (AUTO) 0.6 (0.2-0.8); MONOCYTES % 7.1 % (4.4-11.3); NEUTROPHILS # (AUTO) 6.8 (2.1-6.9); NEUTROPHILS % 76.3 % (38.7-80.0); PLATELET COUNT 224 x10e3/uL (140-360); RED BLOOD COUNT 4.26 x10e6/uL (3.6-5.1); RED CELL DISTRIBUTION WIDTH 11.7 % (11.7-14.4)
[2019-10-19] MEDS ORDERED: ACETAMINOPHEN 1000 MG/100 ML IV PRN (06:00)
[2019-10-19 06:07] LABS: ALANINE AMINOTRANSFERASE 41 IU/L (0-55); ALBUMIN 3.5 g/dL (3.5-5.0); ALBUMIN/GLOBULIN RATIO 0.9 (0.8-2.0); ALKALINE PHOSPHATASE 65 IU/L (40-150); ANION GAP 18.3 mmol/L (8-16); BLOOD UREA NITROGEN 12 mg/dL (7-26); BUN/CREATININE RATIO 16 (6-25); CALCIUM 8.7 mg/dL (8.4-10.2); CARBON DIOXIDE 21 mmol/L (22-29); CHLORIDE 100 mmol/L (98-107); CREATININE, SERUM 0.74 mg/dL (0.57-1.11); EST GLOMERULAR FILTRATION RATE > 60 ML/MIN (60-); GLUCOSE 139 mg/dL (74-118); POTASSIUM 3.3 mmol/L (3.5-5.1); SODIUM 136 mmol/L (136-145)
--- NOTE | 2019-10-19 06:49 | NUR ---
Bedside report given to oncoming nurse. Patient resting in bed, in stable condition, no s/s of distress at this time.
[2019-10-19] MEDS ORDERED: DEXTROSE 50% SYRINGE 50 ML IV PRN (09:00)
[2019-10-19] MEDS ORDERED: POTASSIUM CHLORIDE 20MEQ/100ML 100 ML IV ONE (09:00)
[2019-10-19] MEDS: PANTOPRAZOLE 40 MG 10ML VIAL IV SCH ×2 (10:09→17:30)
[2019-10-19] MEDS: METOPROLOL SUCCINATE 50 MG TAB XL PO SCH (10:09)
[2019-10-19] MEDS: AMLODIPINE BESYLATE 5 MG TAB PO SCH (10:09)
[2019-10-19 10:34] LABS: CLARITY,URINE HAZY (CLEAR); COLOR,URINE YELLOW (YELLOW); KETONES,URINE 2+ (NEGATIVE); LEUKOCYTE ESTERASE ,URINE NEGATIVE (NEGATIVE); NITRITE,URINE NEGATIVE (NEGATIVE); PROTEIN,URINE DIPSTICK >=300 (NEGATIVE)
[2019-10-19 10:35] LABS: BILIRUBIN,URINE SMALL (NEGATIVE)
[2019-10-19 10:40] LABS: AMORPHOUS SEDIMENT,URINE FEW (FEW); BACTERIA,URINE MANY /HPF; EPITHELIAL CELLS,URINE FEW /LPF; MUCUS,URINE FEW (RARE); YEAST,URINE FEW
--- NOTE | 2019-10-19 11:16 | NUR ---
Notified Dr.Haddad Bryan. patient covid positive.
[2019-10-19] MEDS ORDERED: ONDANSETRON HCL INJ 2MG/ML 2ML 2 MG/ML VIAL IV PRN (11:45)
--- NOTE | 2019-10-19 12:35 | NUR ---
Report given to Mari BOYD of patient's status. Patient transferred to [facility] via bed. No s/s of acute distress noted.
[2019-10-19] MEDS: INSULIN REGULAR, HUMAN 100 UNIT/1 ML 3ML VIAL SQ SCH ×3 (12:36→22:31)
--- NOTE | 2019-10-19 15:00 | NUR ---
AFTER POTASSIUM IV INFUSED, THE PATIENT SELF REMOVED IV CATHETER. PT STATES SITE WAS BURNING AND HURT. PT OK WITH IV START FOR HYDRATION.
--- NOTE | 2019-10-19 18:42 | NUR ---
infectious disease consultation Patient seen and examined chart reviewed This is a very pleasant 59-year-old -[place] female Comes in the hospital with nausea so without discomfort or diarrhea fever There is no shortness of breath no cough at that time patient lying in bed comfortably Her covid 19 with test came back positive She is currently alert oriented comfortable review of system otherwise is totally negative at the present time. Physical examination she currently alert oriented vitals stable afebrile HEENT normocephalic no protracted neck supple chest clear bilateral heart S1-S2 abdomen soft also present extremities no edema skin no rash. Laboratory review chart reviewed. covid 19 upper respiratory infection GI gastroenteritis Dehydration Recommend supportive care nausea control IV fluid as needed Patient remains in isolation for 10 days No need for antibiotic no need for dexamethasone discussed with the patient will reassess in the morning answered all her questions
[2019-10-20] MEDS: SODIUM CHLORIDE 0.9% 1000ML 1,000 ML IV SCH ×3 (01:24→19:21)
[2019-10-20] MEDS: METOCLOPRAMIDE HCL 10 MG/2ML VIAL IV SCH ×4 (01:42→16:21)
[2019-10-20 04:00] VITALS: BP 126/61
--- NOTE | 2019-10-20 05:42 | NUR ---
PRN tylenol given for low grade temp, patient seen lethargic, skin warm to the touch, reporting chills, call light within reach, will continue to monitor
[2019-10-20] MEDS: INSULIN REGULAR, HUMAN 100 UNIT/1 ML 3ML VIAL SQ SCH ×4 (07:30→20:58)
[2019-10-20] MEDS: PANTOPRAZOLE 40 MG 10ML VIAL IV SCH ×2 (09:00→16:19)
[2019-10-20] MEDS: AMLODIPINE BESYLATE 5 MG TAB PO SCH (09:00)
[2019-10-20] MEDS: METOPROLOL SUCCINATE 50 MG TAB XL PO SCH (09:00)
[2019-10-20 09:38] VITALS: BP 136/81
[2019-10-20 09:39] VITALS: BP 136/81
[2019-10-20 10:03] LABS: BASOPHILS % 0.1 % (0.0-1.0); EOSINOPHILS % 0.3 % (0.0-6.0); HEMATOCRIT 35.2 % (34.2-44.1); HEMOGLOBIN 11.4 g/dL (12.0-16.0); LYMPHOCYTES # (AUTO) 1.6 (1.0-3.2); LYMPHOCYTES % 21.5 % (18.0-39.1); MEAN CORPUSCULAR HEMOGLOBIN 29.2 pg (28-32); MEAN CORPUSCULAR HGB CONC 32.4 g/dL (31-35); MEAN CORPUSCULAR VOLUME 90.3 fL (81-99); MONOCYTES # (AUTO) 0.8 (0.2-0.8); MONOCYTES % 10.8 % (4.4-11.3); NEUTROPHILS % 66.6 % (38.7-80.0); PLATELET COUNT 278 x10e3/uL (140-360); RED CELL DISTRIBUTION WIDTH 11.6 % (11.7-14.4)
[2019-10-20 10:26] LABS: ANION GAP 13.2 mmol/L (8-16); BLOOD UREA NITROGEN 8 mg/dL (7-26); BUN/CREATININE RATIO 12 (6-25); CALCIUM 8.3 mg/dL (8.4-10.2); CARBON DIOXIDE 23 mmol/L (22-29); CHLORIDE 101 mmol/L (98-107); CREATININE, SERUM 0.69 mg/dL (0.57-1.11); EST GLOMERULAR FILTRATION RATE > 60 ML/MIN (60-); GLUCOSE 171 mg/dL (74-118); POTASSIUM 3.2 mmol/L (3.5-5.1); SODIUM 134 mmol/L (136-145)
[2019-10-20 11:45] VITALS: BP 116/69
--- NOTE | 2019-10-20 13:37 | NUR ---
Spoke with Dr. Chu and says from his stand point patient is clear for discharge.
[2019-10-20] MEDS ORDERED: POTASSIUM CHLORIDE 20MEQ/100ML 100 ML IV ONE (14:15)
--- NOTE | 2019-10-20 14:52 | Progress Note ---
DATE: SUBJECTIVE: Ms. Lewis continued to do well. Her nausea is improving. LABORATORY DATA: Reviewed. REVIEW OF SYSTEMS: Unremarkable. PHYSICAL EXAMINATION: GENERAL: She is currently alert and oriented. VITAL SIGNS: Stable, currently afebrile. HEENT: She is not icteric. NECK: Supple. CHEST: Clear. HEART: S1 and S2. ABDOMEN: Soft. Bowel sounds present. EXTREMITIES: No edema. SKIN: No rash. IMPRESSION: COVID-19, gastroenteritis. Once the patient continued to improve and her symptoms is improved, could be discharged home with symptomatic treatment. The patient need to be in home quarantine for 10 days since the onset of illness. Discussed with the patient, answered all her questions. MD MARIJA Ruelas/LIBIA /[id number]
--- NOTE | 2019-10-20 15:08 | NUR ---
Spoke with Dr. Collin Martinez and notify about the patient's episode of diarrhea. Stool for c-diff is collected. Addendum: 10/20/19 at 1518 by Michelle Friedman RN No orders given.
[2019-10-20] MEDS: CHOLESTYRAMINE 4 GM PACKET PO SCH (16:19)
--- NOTE | 2019-10-20 19:26 | NUR ---
RECEIVED REPORT FROM DAY NURSE. PATIENT IS RESTING IN THE BED. DENIES PAIN OR DISCOMFORT. BED IS IN LOWEST POSITION AND CALL LIGHT IS WITHIN REACH. WILL CONTINUE TO MONITOR PATIENT.
[2019-10-20 20:00] VITALS: BP 129/87
[2019-10-21] VITALS: BP 133/75
[2019-10-21] MEDS ORDERED: LOPERAMIDE HCL 2 MG CAP PO ONE
[2019-10-21] MEDS ORDERED: ACETAMINOPHEN 325 MG TAB PO PRN
--- NOTE | 2019-10-21 | NUR ---
PATIENT HAS A TEMPERATURE OF 100.4. SPOKE WITH CONSULTED PHYSICIAN AND RECEIVED NEW ORDER FOR ACETAMINOPHEN 650MG PO q 6 HOURS. ALSO RECEIVED NEW ORDERS FOR LOPERAMIDE. WILL CONTINUE TO MONITOR PATIENT.
[2019-10-21] MEDS ORDERED: LOPERAMIDE HCL 2 MG CAP PO PRN (00:15)
[2019-10-21] MEDS: METOCLOPRAMIDE HCL 10 MG/2ML VIAL IV SCH ×3 (00:15→11:40)
--- NOTE | 2019-10-21 01:00 | NUR ---
patient's temperature has been reassessed and found to be 98.6. patient is asleep in the bed. bed is in the lowest position and call light is within reach.
[2019-10-21 04:00] VITALS: BP 121/61
[2019-10-21 05:19] VITALS: BP 121/61
[2019-10-21] MEDS: SODIUM CHLORIDE 0.9% 1000ML 1,000 ML IV SCH (05:40)
--- NOTE | 2019-10-21 06:40 | NUR ---
Infectious disease specialist paged to inform of patients temperature spike during the night. Awaiting call back.
--- NOTE | 2019-10-21 06:43 | NUR ---
patient is resting in the bed, bed is in lowest position and call light is within reach.
[2019-10-21] MEDS: INSULIN REGULAR, HUMAN 100 UNIT/1 ML 3ML VIAL SQ SCH ×2 (07:30→11:30)
[2019-10-21 07:57] VITALS: BP 144/78
[2019-10-21] MEDS: PANTOPRAZOLE 40 MG 10ML VIAL IV SCH (08:21)
[2019-10-21] MEDS: AMLODIPINE BESYLATE 5 MG TAB PO SCH (08:22)
[2019-10-21] MEDS: CHOLESTYRAMINE 4 GM PACKET PO SCH (08:22)
[2019-10-21] MEDS: METOPROLOL SUCCINATE 50 MG TAB XL PO SCH (08:22)
[2019-10-21 08:53] VITALS: BP 144/78
--- NOTE | 2019-10-21 11:05 | Progress Note ---
DATE: SUBJECTIVE: The patient is seen and evaluated. Available labs and notes reviewed. Discussed with Dr. Chu in detail. REVIEW OF SYSTEMS: Feels better. Diarrhea improved. Abdominal cramping improved. Nausea improved. No shortness of breath. Feels better overall. PHYSICAL EXAMINATION: VITAL SIGNS: Temperature 99.3, pulse 83, respirations 24, blood pressure 144/78. GENERAL: Awake and alert, in no acute distress. Currently, afebrile. CV: S1-S2. CHEST: Equal expansion. Clear to auscultation. No acute distress. ABDOMEN: Soft, no tender, no distention, No JVD. EXTREMITIES: Weak, moves all, no acute distress. MEDICATIONS: Reviewed from Infectious Disease point of view, the patient is on Imodium and Questran. LABORATORY STUDIES: C difficile is pending. COVID-19 PCR was detected on 10/19/2019. Sodium 134, potassium 3.2, creatinine 0.69, white blood cells 7.44, hemoglobin 11.4, and platelets 278. MICROBIOLOGY: Blood culture 10/18 is negative so far. Urine culture 10/19/2019, is negative so far. RADIOLOGY STUDIES: No new radiology studies available. ASSESSMENT AND PLAN: 1. COVID-19 infection, pneumonitis and respiratory infection. 2. Gastroenteritis. 3. The patient remains on room air. No acute distress. Abdominal discomfort has improved. Follow up with the C diff and continue with Imodium. Monitor patient clinically. Follow up with the labs. Please refer to chart for more information. Dictated by Alberto Vera PA-C (Al) Jong Chu MD /MODL /[id number]
[2019-10-21] MEDS ORDERED: POTASSIUM CHLORIDE 10MEQ EA PO NR (11:30)
[2019-10-21 11:38] VITALS: BP 127/69
[2019-10-21] MEDS ORDERED: REGLAN5 MG PO (13:22)
[2019-10-21] MEDS ORDERED: AZITHROMYCIN250 MG PO (13:22)
--- NOTE | 2019-10-21 13:45 | NUR ---
Discharge education provided with discharge packet and home medication prescription given. Verbalized understanding. PIV to left hand and right FA, catheter tip intact, no bleeding noted. 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
--- NOTE | 2019-10-21 13:54 | NUR ---
Transported patient via wheelchair to private vehicle with all personal belongings noted.
== END 2019-10-21 13:54 | disposition home or self-care (01) | DRG 177 ==
LOC: ER 14:30 → ERHOLD 16:05 → MED/SURG 17:00 → MED/SURG3 10-19 12:38 → IMCU 10-19 21:47
PROC: 8E0ZXY6 Isolation (ICD-10-PCS; principal; 2019-10-18)
DX: U07.1 COVID-19 (principal); J12.89 Other viral pneumonia; K31.84 Gastroparesis; E11.43 Type 2 diabetes mellitus with diabetic autonomic (poly)neuropathy; Z79.4 Long term (current) use of insulin; I10 Essential (primary) hypertension; E86.0 Dehydration; E78.5 Hyperlipidemia, unspecified; E87.6 Hypokalemia
CPT/HCPCS: 36415; 70450; 71046; 80048; 80053; 81001; 82550; 82553; 82948; 83690; 84484; 85025; 87040; 87086; 87493; 93005; 96372; 99284; J1817; J2405; J2765; J3480; J7030; J7040; U0002

== ENCOUNTER 2020-09-21 10:12 | Emergency (ER) | payer BC, OTHER ==
[~2020-09-21] VITALS: Ht 170.2 cm; Wt 74.0 kg
[~2020-09-21 10:12] MED LIST changes: +AMLODIPINE BESYL5 MG PO; +AZITHROMYCIN250 MG PO; +METFORMIN HCL1000 MG PO; +METOCLOPRAMIDE H5 MG PO; +METOPROLOL SUCC50 MG PO; +OLMESARTAN MEDO40 MG PO; +REGLAN5 MG PO
[2020-09-21] MEDS ORDERED: NOVOLOG100 UNIT/1 SC (11:05)
[2020-09-21] MEDS ORDERED: JARDIANCE10 MG (11:05)
[2020-09-21] MEDS ORDERED: PRAVASTATIN SOD10 MG (11:05)
[2020-09-21] MEDS ORDERED: CEFDINIR300 MG PO (11:24)
== END 2020-09-21 11:33 | disposition home or self-care (01) ==
LOC: FSED 10:25
DX: N39.0 Urinary tract infection, site not specified (principal); E11.9 Type 2 diabetes mellitus without complications; E78.5 Hyperlipidemia, unspecified; I10 Essential (primary) hypertension
CPT/HCPCS: 81003; 99283

== ENCOUNTER → 2020-12-15 | Outpatient (CLI) | payer OTHER ==
[~2020-12-15] MED LIST changes: +CEFDINIR300 MG PO; +COVID-19 VACC, MRNA(MODERNA)/PF 100 MCG/0.5 ML VIAL IM ONE; +JARDIANCE10 MG; +NOVOLOG100 UNIT/1 SC; +PRAVASTATIN SOD10 MG
== END ==
LOC: VACCPMC 09:00
DX: Z23 Encounter for immunization (principal); Z20.822 Contact with and (suspected) exposure to COVID-19

== ENCOUNTER 2021-02-14 18:06 | Emergency (ER) | payer BC, OTHER ==
[~2021-02-14] VITALS: Ht 170.2 cm; Wt 73.9 kg
[~2021-02-14 18:06] MED LIST changes: -COVID-19 VACC, MRNA(MODERNA)/PF 100 MCG/0.5 ML VIAL IM ONE
[2021-02-14] MEDS ORDERED: ONDANSETRON HCL 4 MG ORAL DISINTEGRATING TAB PO ONE (18:30)
[2021-02-14] MEDS ORDERED: METFORMIN HCL500 MG PO (18:31)
[2021-02-14] MEDS ORDERED: ONDANSETRON ODT4 MG PO (18:31)
[2021-02-14] MEDS ORDERED: ONDANSETRON HCL 4 MG ORAL DISINTEGRATING TAB ONE (18:36)
[2021-02-14] MEDS ORDERED: NYSTATIN1 EAC2 TOP (18:46)
== END 2021-02-14 18:58 | disposition home or self-care (01) ==
LOC: FSED 18:09
DX: R11.0 Nausea (principal); E11.9 Type 2 diabetes mellitus without complications; I10 Essential (primary) hypertension; E78.5 Hyperlipidemia, unspecified; Z87.440 Personal history of urinary (tract) infections; Z88.6 Allergy status to analgesic agent; Z91.041 Radiographic dye allergy status; Z79.4 Long term (current) use of insulin; Z79.82 Long term (current) use of aspirin; Z79.899 Other long term (current) drug therapy
CPT/HCPCS: 36415; 82948; 99282; Q0162

== ENCOUNTER 2021-02-16 16:29 | Inpatient (IN) | payer BC ==
[~2021-02-16] VITALS: Ht 170.2 cm; Wt 73.9 kg
[~2021-02-16 16:29] MED LIST changes: +METFORMIN HCL500 MG PO; +NYSTATIN1 EAC2 TOP; +ONDANSETRON ODT4 MG PO
[2021-02-16] MEDS ORDERED: SODIUM CHLORIDE 0.9% 1000ML 1,000 ML IV ONE (16:45)
[2021-02-16 16:59] LABS: BASOPHILS % 0.2 % (0.0-1.0); EOSINOPHILS # (AUTO) 0.1 (0.0-0.4); EOSINOPHILS % 0.4 % (0.0-6.0); HEMATOCRIT 39.6 % (34.2-44.1); HEMOGLOBIN 12.9 g/dL (12.0-16.0); LYMPHOCYTES % 5.9 % (18.0-39.1); MEAN CORPUSCULAR HEMOGLOBIN 29.5 pg (28-32); MEAN CORPUSCULAR HGB CONC 32.6 g/dL (31-35); MEAN CORPUSCULAR VOLUME 90.6 fL (81-99); MONOCYTES % 11.1 % (4.4-11.3); NEUTROPHILS # (AUTO) 14.3 (2.1-6.9); NEUTROPHILS % 81.5 % (38.7-80.0); PLATELET COUNT 225 x10e3/uL (140-360); RED BLOOD COUNT 4.37 x10e6/uL (3.6-5.1); RED CELL DISTRIBUTION WIDTH 12.1 % (11.7-14.4)
[2021-02-16 17:16] LABS: ALBUMIN 2.5 g/dL (3.5-5.0); ALBUMIN/GLOBULIN RATIO 0.5 (0.8-2.0); ANION GAP 20.9 mmol/L (8-16); CALCIUM 8.7 mg/dL (8.4-10.2); CREATININE, SERUM 0.94 mg/dL (0.57-1.11); POTASSIUM 3.9 mmol/L (3.5-5.1)
[2021-02-16 17:18] LABS: AMYLASE 25 U/L (25-125); LIPASE 10 U/L (8-78)
[2021-02-16] MEDS: ONDANSETRON HCL INJ 2MG/ML 2ML 2 MG/ML VIAL IV PRN ×2 (17:32→21:47)
[2021-02-16 17:55] LABS: CLARITY,URINE CLOUDY (CLEAR); COLOR,URINE YELLOW (YELLOW); KETONES,URINE 2+ (NEGATIVE); LEUKOCYTE ESTERASE ,URINE TRACE (NEGATIVE); NITRITE,URINE NEGATIVE (NEGATIVE); PROTEIN,URINE DIPSTICK >=300 (NEGATIVE); URINE UROBILINOGEN 2 mg/dL (0.2 - 1)
[2021-02-16 18:11] LABS: BACTERIA,URINE MANY /HPF; EPITHELIAL CELLS,URINE FEW /LPF
[2021-02-16] MEDS ORDERED: DEXTROSE 50% SYRINGE 50 ML IV PRN (18:15)
[2021-02-16] MEDS ORDERED: METOCLOPRAMIDE HCL 10 MG/2ML VIAL IV PRN (18:30)
[2021-02-16] MEDS: SODIUM CHLORIDE 0.9% 1000ML 1,000 ML IV SCH (18:36)
[2021-02-16] MEDS: PIPERACILLIN/TAZOBACTAM 3.375 GM in SODIUM CHLORIDE 0.9% 50ML 50 ML IV SCH (21:00)
[2021-02-16] MEDS ORDERED: PIPERACILLIN/TAZOBACTAM 3.375 GM VIAL ONE (21:10)
[2021-02-16] MEDS ORDERED: SODIUM CHLORIDE 0.9% 50ML 50 ML ONE (21:10)
[2021-02-16] MEDS: INSULIN REGULAR, HUMAN 100 UNIT/1 ML SQ SCH (21:18)
[2021-02-16] MEDS: CIPROFLOXACIN 400 MG/D5W 200ML 200 ML IV SCH (21:42)
[2021-02-16] MEDS ORDERED: ACETAMINOPHEN 325 MG TAB PO ONE (21:45)
[2021-02-16 23:00] VITALS: BP 147/71
[2021-02-17] VITALS (7 sets, daily range): BP systolic 122–165; BP diastolic 58–88
[2021-02-17] MEDS ORDERED: LANTUS 3ML100 UNITS/ (00:06)
[2021-02-17] MEDS: SODIUM CHLORIDE 0.9% 1000ML 1,000 ML IV SCH ×3 (02:56→21:17)
[2021-02-17 05:24] LABS: BASOPHILS % 0.2 % (0.0-1.0); HEMATOCRIT 36.1 % (34.2-44.1); HEMOGLOBIN 11.8 g/dL (12.0-16.0); LYMPHOCYTES # (AUTO) 0.8 (1.0-3.2); LYMPHOCYTES % 4.5 % (18.0-39.1); MEAN CORPUSCULAR HGB CONC 32.7 g/dL (31-35); MEAN CORPUSCULAR VOLUME 88.7 fL (81-99); MONOCYTES # (AUTO) 2.5 (0.2-0.8); MONOCYTES % 14.6 % (4.4-11.3); NEUTROPHILS # (AUTO) 13.4 (2.1-6.9); NEUTROPHILS % 79.2 % (38.7-80.0); PLATELET COUNT 211 x10e3/uL (140-360); RED BLOOD COUNT 4.07 x10e6/uL (3.6-5.1)
[2021-02-17 05:57] LABS: ANION GAP 12.6 mmol/L (8-16); CALCIUM 8.9 mg/dL (8.4-10.2); CREATININE, SERUM 0.82 mg/dL (0.57-1.11); POTASSIUM 3.6 mmol/L (3.5-5.1)
[2021-02-17] MEDS: METOCLOPRAMIDE HCL 10 MG/2ML VIAL IV SCH ×4 (06:00→23:48)
[2021-02-17] MEDS: ONDANSETRON HCL INJ 2MG/ML 2ML 2 MG/ML VIAL IV PRN (09:35)
[2021-02-17] MEDS: INSULIN REGULAR, HUMAN 100 UNIT/1 ML SQ SCH ×3 (09:44→16:30)
[2021-02-17] MEDS: Pantoprazole IV 40 MG in SODIUM CHLORIDE 0.9% 50ML 50 ML IV SCH ×3 (12:36→21:36)
[2021-02-17] MEDS: SUCRALFATE 1 GM TAB PO SCH ×3 (12:36→21:36)
[2021-02-17] MEDS: CIPROFLOXACIN 400 MG/D5W 200ML 200 ML IV SCH (12:36)
[2021-02-17] MEDS ORDERED: POVIDONE IODINE 0.05% 0.05 % ML PO ONE (13:31)
[2021-02-17] MEDS ORDERED: ONDANSETRON HCL INJ 2MG/ML 2ML 2 MG/ML VIAL ONE (13:31)
[2021-02-17] MEDS ORDERED: LIDOCAINE HCL 2% LOCAL INJ 5 ML SDV VIAL INJ ONE (13:31)
[2021-02-17] MEDS ORDERED: SEVOFLURANE INHAL SOLN 250 ML PEN BTL ONE (13:31)
[2021-02-17] MEDS ORDERED: PROPOFOL IV EMULSION 10 MG/ML 20 ML VIAL ONE (13:31)
[2021-02-17] MEDS ORDERED: METOCLOPRAMIDE HCL 10 MG/2ML VIAL ONE (13:31)
[2021-02-17] MEDS ORDERED: DEXAMETHASONE SOD PHOS INJ 4 MG/ML SDV ONE (13:31)
[2021-02-17] MEDS ORDERED: MIDAZOLAM HCL 2 MG/2 ML VIAL ONE (13:37)
[2021-02-17] MEDS ORDERED: FENTANYL CITRATE/PF 100MCG/2 ML INJ ONE (13:37)
[2021-02-17 15:38] LABS: FREE T4 (FREE THYROXINE) 1.02 ng/dL (0.8-1.8); THYROID STIMULATING HORMONE 0.688 uIU/mL (0.350-4.940)
[2021-02-17] MEDS: INSULIN LISPRO 100 UNIT/1 ML 3ML VIAL SQ SCH ×2 (16:36→21:00)
[2021-02-17] MEDS ORDERED: INSULIN GLARGINE 100 UNITS/ML VIAL SQ SCH ×2 (21:00)
[2021-02-17] MEDS: PIPERACILLIN/TAZOBACTAM 3.375 GM in SODIUM CHLORIDE 0.9% 50ML 50 ML IV SCH (21:12)
[2021-02-18] VITALS (7 sets, daily range): BP systolic 132–151; BP diastolic 69–81
[2021-02-18] MEDS: Pantoprazole IV 40 MG in SODIUM CHLORIDE 0.9% 50ML 50 ML IV SCH ×4 (03:20→20:40)
[2021-02-18] MEDS ORDERED: ONDANSETRON HCL INJ 2MG/ML 2ML 2 MG/ML VIAL IV PRN (03:30)
[2021-02-18] MEDS: SODIUM CHLORIDE 0.9% 1000ML 1,000 ML IV SCH ×3 (03:33→18:35)
[2021-02-18 06:11] LABS: BASOPHILS % 0.2 % (0.0-1.0); EOSINOPHILS % 0.1 % (0.0-6.0); HEMATOCRIT 35.9 % (34.2-44.1); HEMOGLOBIN 11.6 g/dL (12.0-16.0); LYMPHOCYTES # (AUTO) 2.3 (1.0-3.2); LYMPHOCYTES % 11.6 % (18.0-39.1); MEAN CORPUSCULAR HEMOGLOBIN 29.1 pg (28-32); MEAN CORPUSCULAR HGB CONC 32.3 g/dL (31-35); MEAN CORPUSCULAR VOLUME 90.2 fL (81-99); MONOCYTES # (AUTO) 2.5 (0.2-0.8); MONOCYTES % 12.7 % (4.4-11.3); NEUTROPHILS # (AUTO) 14.7 (2.1-6.9); NEUTROPHILS % 73.7 % (38.7-80.0); PLATELET COUNT 236 x10e3/uL (140-360); RED BLOOD COUNT 3.98 x10e6/uL (3.6-5.1); RED CELL DISTRIBUTION WIDTH 12.3 % (11.7-14.4)
[2021-02-18] MEDS: PIPERACILLIN/TAZOBACTAM 3.375 GM in SODIUM CHLORIDE 0.9% 50ML 50 ML IV SCH ×4 (06:34→23:14)
[2021-02-18] MEDS: METOCLOPRAMIDE HCL 10 MG/2ML VIAL IV SCH ×4 (06:34→23:25)
[2021-02-18 07:11] LABS: ALBUMIN 2.2 g/dL (3.5-5.0); ALBUMIN/GLOBULIN RATIO 0.5 (0.8-2.0); ANION GAP 11.8 mmol/L (8-16); CREATININE, SERUM 0.78 mg/dL (0.57-1.11); POTASSIUM 3.8 mmol/L (3.5-5.1)
[2021-02-18] MEDS ORDERED: INSULIN LISPRO 100 UNIT/1 ML 3ML VIAL SQ SCH (07:30)
[2021-02-18 07:36] LABS: FERRITIN 400.52 ng/mL (4.63-204.00)
[2021-02-18] MEDS: INSULIN LISPRO 100 UNIT/1 ML 3ML VIAL SQ SCH ×4 (09:25→21:16)
[2021-02-18] MEDS: SUCRALFATE 1 GM TAB PO SCH ×4 (09:25→20:41)
[2021-02-18] MEDS: MAGNESIUM HYDROXIDE 30 ML UDC PO ONE ×2 (10:07→10:10)
[2021-02-18] MEDS ORDERED: MAGNESIUM HYDROXIDE 30 ML UDC PO ONE (10:30)
[2021-02-18 11:37] LABS: LYMPHOCYTES % (MANUAL) 12 % (19-48); METAMYELOCYTES % (MANUAL) 1 % (0-0); MONOCYTES % (MANUAL) 11 % (3.4-9.0); MYELOCYTES % (MANUAL) 1 % (0-0); NEUTROPHILS % (MANUAL) 75 % (40-74); PLATELET ESTIMATE ADEQUATE; PLATELET MORPHOLOGY COMMENT NORMAL
[2021-02-18 11:38] LABS: RBC MORPHOLOGY COMMENT NORMAL
[2021-02-18] MEDS ORDERED: SODIUM CHLORIDE 0.9% 0 ML ONE (12:36)
[2021-02-18] MEDS ORDERED: SODIUM CHLORIDE 0.9% 50ML 50 ML ONE (13:15)
[2021-02-18] MEDS: INSULIN GLARGINE 100 UNITS/ML VIAL SQ SCH (21:17)
[2021-02-19] VITALS (8 sets, daily range): BP systolic 117–168; BP diastolic 70–93
[2021-02-19] MEDS: Pantoprazole IV 40 MG in SODIUM CHLORIDE 0.9% 50ML 50 ML IV SCH ×4 (02:17→19:10)
[2021-02-19] MEDS: METOCLOPRAMIDE HCL 10 MG/2ML VIAL IV SCH ×3 (05:15→18:00)
[2021-02-19] MEDS: SODIUM CHLORIDE 0.9% 1000ML 1,000 ML IV SCH ×3 (05:15→18:15)
[2021-02-19] MEDS: PIPERACILLIN/TAZOBACTAM 3.375 GM in SODIUM CHLORIDE 0.9% 50ML 50 ML IV SCH ×3 (05:32→18:30)
[2021-02-19 05:54] LABS: BASOPHILS % 0.2 % (0.0-1.0); EOSINOPHILS % 0.2 % (0.0-6.0); HEMATOCRIT 36.5 % (34.2-44.1); HEMOGLOBIN 11.6 g/dL (12.0-16.0); LYMPHOCYTES # (AUTO) 2.8 (1.0-3.2); LYMPHOCYTES % 16.6 % (18.0-39.1); MEAN CORPUSCULAR HEMOGLOBIN 28.8 pg (28-32); MEAN CORPUSCULAR HGB CONC 31.8 g/dL (31-35); MEAN CORPUSCULAR VOLUME 90.6 fL (81-99); NEUTROPHILS # (AUTO) 11.5 (2.1-6.9); NEUTROPHILS % 68.1 % (38.7-80.0); PLATELET COUNT 240 x10e3/uL (140-360); RED BLOOD COUNT 4.03 x10e6/uL (3.6-5.1); RED CELL DISTRIBUTION WIDTH 12.3 % (11.7-14.4)
[2021-02-19 06:28] LABS: ALBUMIN 2.1 g/dL (3.5-5.0); ALBUMIN/GLOBULIN RATIO 0.5 (0.8-2.0); CALCIUM 8.8 mg/dL (8.4-10.2); CREATININE, SERUM 0.66 mg/dL (0.57-1.11)
[2021-02-19] MEDS: INSULIN LISPRO 100 UNIT/1 ML 3ML VIAL SQ SCH ×5 (07:30→20:20)
[2021-02-19 08:20] LABS: BAND NEUTROPHILS % (MANUAL) 1 %; LYMPHOCYTES % (MANUAL) 16 % (19-48); MONOCYTES % (MANUAL) 10 % (3.4-9.0); MYELOCYTES % (MANUAL) 1 % (0-0); NEUTROPHILS % (MANUAL) 72 % (40-74); PLATELET ESTIMATE ADEQUATE; RBC MORPHOLOGY COMMENT NORMAL
[2021-02-19 08:21] LABS: PLATELET MORPHOLOGY COMMENT FEW GIANT
[2021-02-19] MEDS: SUCRALFATE 1 GM TAB PO SCH ×4 (08:40→20:37)
[2021-02-19] MEDS ORDERED: MAGNESIUM HYDROXIDE 30 ML UDC PO PRN (10:00)
[2021-02-19 15:36] LABS: BASOPHILS % 0.3 % (0.0-1.0); EOSINOPHILS % 0.3 % (0.0-6.0); HEMATOCRIT 37.8 % (34.2-44.1); LYMPHOCYTES # (AUTO) 2.3 (1.0-3.2); LYMPHOCYTES % 16.6 % (18.0-39.1); MEAN CORPUSCULAR HEMOGLOBIN 28.8 pg (28-32); MEAN CORPUSCULAR HGB CONC 31.7 g/dL (31-35); MEAN CORPUSCULAR VOLUME 90.9 fL (81-99); MONOCYTES # (AUTO) 1.6 (0.2-0.8); MONOCYTES % 11.6 % (4.4-11.3); NEUTROPHILS # (AUTO) 9.8 (2.1-6.9); NEUTROPHILS % 69.6 % (38.7-80.0); PLATELET COUNT 247 x10e3/uL (140-360); RED BLOOD COUNT 4.16 x10e6/uL (3.6-5.1); RED CELL DISTRIBUTION WIDTH 12.4 % (11.7-14.4)
[2021-02-19] MEDS: INSULIN GLARGINE 100 UNITS/ML VIAL SQ SCH (20:37)
[2021-02-20] VITALS: BP 155/75
[2021-02-20] MEDS ORDERED: SODIUM CHLORIDE 0.9% 50ML 50 ML ONE (00:19)
[2021-02-20] MEDS: Pantoprazole IV 40 MG in SODIUM CHLORIDE 0.9% 50ML 50 ML IV SCH ×4 (00:26→15:00)
[2021-02-20] MEDS: METOCLOPRAMIDE HCL 10 MG/2ML VIAL IV SCH ×3 (00:26→12:08)
[2021-02-20] MEDS: PIPERACILLIN/TAZOBACTAM 3.375 GM in SODIUM CHLORIDE 0.9% 50ML 50 ML IV SCH ×2 (00:26→05:24)
[2021-02-20] MEDS: SODIUM CHLORIDE 0.9% 1000ML 1,000 ML IV SCH ×2 (02:15→09:44)
[2021-02-20 04:00] VITALS: BP 166/84
[2021-02-20 06:28] LABS: BASOPHILS % 0.2 % (0.0-1.0); EOSINOPHILS # (AUTO) 0.1 (0.0-0.4); EOSINOPHILS % 0.4 % (0.0-6.0); HEMATOCRIT 35.9 % (34.2-44.1); HEMOGLOBIN 11.7 g/dL (12.0-16.0); LYMPHOCYTES # (AUTO) 1.7 (1.0-3.2); LYMPHOCYTES % 13.8 % (18.0-39.1); MEAN CORPUSCULAR HGB CONC 32.6 g/dL (31-35); MEAN CORPUSCULAR VOLUME 89.1 fL (81-99); MONOCYTES # (AUTO) 1.7 (0.2-0.8); MONOCYTES % 13.2 % (4.4-11.3); NEUTROPHILS # (AUTO) 8.9 (2.1-6.9); NEUTROPHILS % 70.7 % (38.7-80.0); PLATELET COUNT 263 x10e3/uL (140-360); RED BLOOD COUNT 4.03 x10e6/uL (3.6-5.1)
[2021-02-20 06:42] LABS: CALCIUM 9.1 mg/dL (8.4-10.2); CREATININE, SERUM 0.67 mg/dL (0.57-1.11)
[2021-02-20] MEDS: INSULIN LISPRO 100 UNIT/1 ML 3ML VIAL SQ SCH ×3 (07:30→11:52)
[2021-02-20 07:50] LABS: LYMPHOCYTES % (MANUAL) 11 % (19-48); MONOCYTES % (MANUAL) 10 % (3.4-9.0); NEUTROPHILS % (MANUAL) 78 % (40-74)
[2021-02-20 07:51] LABS: PLATELET ESTIMATE ADEQUATE; PLATELET MORPHOLOGY COMMENT NORMAL; RBC MORPHOLOGY COMMENT NORMAL
[2021-02-20 08:11] VITALS: BP 127/75
[2021-02-20] MEDS: SUCRALFATE 1 GM TAB PO SCH ×2 (08:12→11:51)
[2021-02-20 08:32] VITALS: BP 127/75
[2021-02-20] MEDS ORDERED: POTASSIUM CHLORIDE 10MEQ EA PO ONE ×3 (09:30→15:30)
[2021-02-20 11:26] VITALS: BP 144/83
[2021-02-20] MEDS ORDERED: Cefazolin 1 GM in SODIUM CHLORIDE 0.9% 50ML 50 ML IV SCH (12:00)
[2021-02-20 14:34] LABS: ANION GAP 10.2 mmol/L (8-16); CALCIUM 8.8 mg/dL (8.4-10.2); CREATININE, SERUM 0.74 mg/dL (0.57-1.11); POTASSIUM 3.2 mmol/L (3.5-5.1)
[2021-02-20 15:09] VITALS: BP 156/89
[2021-02-20] MEDS ORDERED: INSULIN GLARGINE 100 UNITS/ML VIAL SQ SCH (21:00)
[2021-02-21] MEDS ORDERED: INSULIN LISPRO 100 UNIT/1 ML 3ML VIAL SQ SCH (07:30)
== END 2021-02-20 16:08 | disposition home or self-care (01) | DRG 638 ==
LOC: ER 16:32 → ERHOLD 18:04 → MED/SURG 23:06
PROVIDERS: ADMIT Internal Medicine; ATTEND Internal Medicine
PROC: 0DB78ZX Excision of Stomach, Pylorus, Via Natural or Artificial Opening Endoscopic, Diagnostic (ICD-10-PCS; 2021-02-17)
PROC: 0DB68ZX Excision of Stomach, Via Natural or Artificial Opening Endoscopic, Diagnostic (ICD-10-PCS; 2021-02-17)
PROC: 0DB98ZX Excision of Duodenum, Via Natural or Artificial Opening Endoscopic, Diagnostic (ICD-10-PCS; principal; 2021-02-17 12:30)
DX: E11.65 Type 2 diabetes mellitus with hyperglycemia (principal); E87.1 Hypo-osmolality and hyponatremia; N39.0 Urinary tract infection, site not specified; Z79.4 Long term (current) use of insulin; K20.90 Esophagitis, unspecified without bleeding; K29.70 Gastritis, unspecified, without bleeding; I10 Essential (primary) hypertension; E78.5 Hyperlipidemia, unspecified; K21.9 Gastro-esophageal reflux disease without esophagitis; E86.0 Dehydration; E87.6 Hypokalemia; K29.80 Duodenitis without bleeding; Z20.822 Contact with and (suspected) exposure to COVID-19; Z88.5 Allergy status to narcotic agent; Z91.041 Radiographic dye allergy status; D64.9 Anemia, unspecified; T38.3X6A Underdosing of insulin and oral hypoglycemic [antidiabetic] drugs, initial encounter; Z91.120 Patient's intentional underdosing of medication regimen due to financial hardship; B96.20 Unspecified Escherichia coli [E. coli] as the cause of diseases classified elsewhere; E11.43 Type 2 diabetes mellitus with diabetic autonomic (poly)neuropathy; K31.84 Gastroparesis
CPT/HCPCS: 36415; 43239; 71045; 80048; 80053; 81001; 82150; 82607; 82728; 82746; 82948; 83036; 83540; 83690; 84439; 84443; 84466; 85025; 87086; 87186; 88305; 88312; 93005; 94799; 96361; 96367; 96372; 96376; 99251; 99284; J0690; J1100; J1815; J1817; J2001; J2250; J2405; J2543; J2765; J3010; J7030; J7050; U0002

== ENCOUNTER 2021-10-22 07:29 | Emergency (ER) | payer BC, OTHER ==
[~2021-10-22] VITALS: Ht 170.2 cm; Wt 73.9 kg
[~2021-10-22 07:29] MED LIST changes: +LANTUS 3ML100 UNITS/
[2021-10-22] MEDS ORDERED: TETANUS/DIPHTHERIA TOX ADULT 0.5 ML SYR IM ONE (07:45)
[2021-10-22] MEDS ORDERED: BACITRACIN ZINC 15 GM OINT TOP SCH (09:00)
[2021-10-22] MEDS ORDERED: BACITRACIN ZINC 0.9GM TP SCH (09:00)
[2021-10-22 09:55] VITALS: BP 137/74
== END 2021-10-22 09:43 | disposition home or self-care (01) ==
LOC: ER 07:37
DX: S01.511A Laceration without foreign body of lip, initial encounter (principal); S80.211A Abrasion, right knee, initial encounter; S80.812A Abrasion, left lower leg, initial encounter; S60.812A Abrasion of left wrist, initial encounter; S02.5XXA Fracture of tooth (traumatic), initial encounter for closed fracture; W01.198A Fall on same level from slipping, tripping and stumbling with subsequent striking against other object, initial encounter; Y93.01 Activity, walking, marching and hiking; Y92.481 Parking lot as the place of occurrence of the external cause; I10 Essential (primary) hypertension; E11.9 Type 2 diabetes mellitus without complications; Z87.440 Personal history of urinary (tract) infections; Z88.5 Allergy status to narcotic agent; Z79.82 Long term (current) use of aspirin; Z79.84 Long term (current) use of oral hypoglycemic drugs
CPT/HCPCS: 90471; 90714; 99284

== ENCOUNTER 2022-03-31 14:46 | Emergency (ER) | payer BC ==
[~2022-03-31] VITALS: Ht 170.2 cm; Wt 73.5 kg
== END 2022-03-31 17:03 | disposition home or self-care (01) ==
LOC: FSED 14:54
DX: S92.511A Displaced fracture of proximal phalanx of right lesser toe(s), initial encounter for closed fracture (principal); X58.XXXA Exposure to other specified factors, initial encounter; Y93.89 Activity, other specified; E11.65 Type 2 diabetes mellitus with hyperglycemia; I10 Essential (primary) hypertension; E78.5 Hyperlipidemia, unspecified
CPT/HCPCS: 36415; 82948; 99283

== ENCOUNTER 2022-05-12 13:00 | Outpatient (RCR) | payer BC | END 2022-05-14 | LOC: PT 13:00 | PROVIDERS: ATTEND Podiatrist Foot & Ankle Surgery | DX: M79.671 Pain in right foot (principal) ==

== ENCOUNTER 2022-06-11 10:00 | Outpatient (RCR) | payer BC | END 2022-06-13 | LOC: PT 10:00 | PROVIDERS: ATTEND Podiatrist Foot & Ankle Surgery | DX: M79.671 Pain in right foot (principal) ==

== ENCOUNTER 2022-06-30 13:57 | Outpatient (RCR) | payer BC | END 2022-07-14 | LOC: PT 13:57 | PROVIDERS: ATTEND Podiatrist Foot & Ankle Surgery | DX: M79.671 Pain in right foot (principal) ==

== ENCOUNTER 2022-08-13 15:24 | Emergency (ER) | payer BC ==
[~2022-08-13] VITALS: Ht 170.2 cm; Wt 76.2 kg
[2022-08-13 16:28] VITALS: O2SAT 95
[2022-08-13] MEDS ORDERED: CLARITIN10 MG PO (18:00)
[2022-08-13] MEDS ORDERED: FLONASE ALLERG9.9 ML INH (18:00)
[2022-08-13] MEDS ORDERED: MUCINEX DM ER1 EAC1 PO (18:00)
[2022-08-13] MEDS ORDERED: BENZONATATE100 MG PO (18:00)
[2022-08-13] MEDS ORDERED: PROAIR DIGIHAL90 MCG INH (18:05)
== END 2022-08-13 18:14 | disposition home or self-care (01) ==
LOC: FSED 15:28
DX: R05.9 Cough, unspecified (principal); J20.9 Acute bronchitis, unspecified; R09.81 Nasal congestion; J34.89 Other specified disorders of nose and nasal sinuses; Z20.822 Contact with and (suspected) exposure to COVID-19
CPT/HCPCS: 71046; 83518; 87400; 99283; U0002

== ENCOUNTER 2024-03-04 18:54 | Inpatient (IN) | payer BC, MEDICARE ==
[~2024-03-04] VITALS: Ht 170.2 cm; Wt 83.9 kg
[~2024-03-04 18:54] MED LIST changes: +BENZONATATE100 MG PO; +CLARITIN10 MG PO; +FLONASE ALLERG9.9 ML INH; +MECLIZINE HCL12.5 MG PO; +MUCINEX DM ER1 EAC1 PO; +PROAIR DIGIHAL90 MCG INH
[2024-03-04 19:06] VITALS: TEMP 98.6
[2024-03-04] MEDS: SODIUM CHLORIDE 0.9% 1000ML 1,000 ML IV STA ×2 (19:26→21:20)
[2024-03-04 19:43] LABS: BASOPHILS % 0.4 % (0.0-1.0); EOSINOPHILS # (AUTO) 0.2 (0.0-0.4); EOSINOPHILS % 2.4 % (0.0-6.0); HEMOGLOBIN 12.8 g/dL (12.0-16.0); LYMPHOCYTES # (AUTO) 1.6 (1.0-3.2); LYMPHOCYTES % 23.1 % (18.0-39.1); MEAN CORPUSCULAR HEMOGLOBIN 29.7 pg (28-32); MEAN CORPUSCULAR HGB CONC 29.8 g/dL (31-35); MEAN CORPUSCULAR VOLUME 99.8 fL (81-99); MONOCYTES # (AUTO) 0.6 (0.2-0.8); MONOCYTES % 7.9 % (4.4-11.3); NEUTROPHILS # (AUTO) 4.6 (2.1-6.9); NEUTROPHILS % 66.1 % (38.7-80.0); PLATELET COUNT 222 x10e3/uL (140-360); RED BLOOD COUNT 4.31 x10e6/uL (3.6-5.1); RED CELL DISTRIBUTION WIDTH 12.5 % (11.7-14.4); WHITE BLOOD COUNT 6.96 x10e3/uL (4.8-10.8)
[2024-03-04] MEDS: DILTIAZEM HCL 5 MG/ML 5 ML VIAL IV STA (20:06)
[2024-03-04 20:11] LABS: ALBUMIN 3.3 g/dL (3.5-5.0); ALBUMIN/GLOBULIN RATIO 0.9 (0.8-2.0); ANION GAP 17.8 mmol/L (8-16); BILIRUBIN,TOTAL 0.3 mg/dL (0.2-1.2); CALCIUM 9.1 mg/dL (8.4-10.2); CREATININE, SERUM 1.41 mg/dL (0.57-1.11); POTASSIUM 4.8 mmol/L (3.5-5.1)
[2024-03-04 20:18] LABS: TROPONIN I 0.008 ng/mL (0-0.300)
[2024-03-04 20:38] LABS: CORONAVIRUS COVID-19 AG NEGATIVE (NEGATIVE); INFLUENZA A AG NEGATIVE (NEGATIVE); INFLUENZA B AG NEGATIVE (NEGATIVE)
[2024-03-04 23:25] VITALS: PULSE 124; RESP 18
[2024-03-05] VITALS (16 sets, daily range): BP systolic 92–140; BP diastolic 66–95; PULSE 71–127; RESP 11–24; TEMP 97.7–98.2; O2SAT 97–100
[2024-03-05] MEDS ORDERED: FARXIGA10 MG (00:13)
[2024-03-05] MEDS ORDERED: MOUNJARO10 MG/0.5 (00:13)
[2024-03-05] MEDS ORDERED: ATORVASTATIN CA40 MG (00:13)
[2024-03-05] MEDS: SODIUM CHLORIDE 0.9% 1000ML 1,000 ML IV SCH (00:44)
[2024-03-05] MEDS ORDERED: LISINOPRIL5 MG PO (01:01)
[2024-03-05 06:56] LABS: BASOPHILS % 0.3 % (0.0-1.0); EOSINOPHILS # (AUTO) 0.2 (0.0-0.4); EOSINOPHILS % 3.1 % (0.0-6.0); HEMATOCRIT 34.7 % (34.2-44.1); HEMOGLOBIN 10.9 g/dL (12.0-16.0); MEAN CORPUSCULAR HEMOGLOBIN 29.4 pg (28-32); MEAN CORPUSCULAR HGB CONC 31.4 g/dL (31-35); MEAN CORPUSCULAR VOLUME 93.5 fL (81-99); MONOCYTES # (AUTO) 0.6 (0.2-0.8); NEUTROPHILS # (AUTO) 3.3 (2.1-6.9); NEUTROPHILS % 53.4 % (38.7-80.0); PLATELET COUNT 204 x10e3/uL (140-360); RED BLOOD COUNT 3.71 x10e6/uL (3.6-5.1); RED CELL DISTRIBUTION WIDTH 12.8 % (11.7-14.4); WHITE BLOOD COUNT 6.09 x10e3/uL (4.8-10.8)
[2024-03-05 07:29] LABS: ALBUMIN 2.6 g/dL (3.5-5.0); ALBUMIN/GLOBULIN RATIO 0.9 (0.8-2.0); ANION GAP 12.1 mmol/L (8-16); BILIRUBIN,TOTAL 0.3 mg/dL (0.2-1.2); CALCIUM 8.1 mg/dL (8.4-10.2); CREATININE, SERUM 1.01 mg/dL (0.57-1.11); POTASSIUM 4.1 mmol/L (3.5-5.1); TOTAL PROTEIN 5.5 g/dL (6.5-8.1)
[2024-03-05 07:40] LABS: TROPONIN I 0.047 ng/mL (0-0.300)
[2024-03-05] MEDS ORDERED: POLYETHYLENE GLYCOL 3350 17 GM PACK PO PRN (09:00)
[2024-03-05] MEDS ORDERED: ONDANSETRON HCL INJ 2MG/ML 2ML 2 MG/ML VIAL IV PRN (09:00)
[2024-03-05] MEDS ORDERED: DEXTROSE 50% SYRINGE 50 ML IV PRN (09:00)
[2024-03-05] MEDS ORDERED: ACETAMINOPHEN 325 MG TAB PO PRN (09:00)
[2024-03-05] MEDS: ATORVASTATIN 40 MG TAB PO SCH (09:41)
[2024-03-05] MEDS: DOCUSATE SODIUM 100 MG CAP PO SCH (09:41)
[2024-03-05] MEDS: SENNOSIDES 8.6 MG TAB PO SCH (09:41)
[2024-03-05] MEDS: INSULIN GLARGINE 100 UNITS/ML VIAL SQ SCH (09:43)
[2024-03-05] MEDS: INSULIN LISPRO 100 UNIT/1 ML 3ML VIAL SQ SCH (12:34)
[2024-03-05] MEDS: METOPROLOL TARTRATE 25 MG TAB PO ONE (14:44)
[2024-03-05 16:21] LABS: CREATINE KINASE 36 IU/L (29-168)
[2024-03-05 17:08] LABS: TROPONIN I < 0.05 ng/mL (0.0-0.40)
[2024-03-05] MEDS: ENOXAPARIN SOD INJ 40 MG/0.4 ML SYR SC SCH (17:18)
[2024-03-05] MEDS: METOPROLOL TARTRATE 25 MG TAB PO SCH (17:18)
[2024-03-06] VITALS (7 sets, daily range): BP systolic 131–179; BP diastolic 74–95; PULSE 69–80; RESP 17–18; TEMP 97.3–98.4; O2SAT 98–100
[2024-03-06 08:10] LABS: BASOPHILS % 0.6 % (0.0-1.0); EOSINOPHILS # (AUTO) 0.2 (0.0-0.4); EOSINOPHILS % 3.5 % (0.0-6.0); HEMOGLOBIN 9.9 g/dL (12.0-16.0); LYMPHOCYTES # (AUTO) 2.1 (1.0-3.2); LYMPHOCYTES % 38.6 % (18.0-39.1); MEAN CORPUSCULAR HEMOGLOBIN 29.6 pg (28-32); MEAN CORPUSCULAR VOLUME 98.8 fL (81-99); MONOCYTES # (AUTO) 0.7 (0.2-0.8); MONOCYTES % 12.1 % (4.4-11.3); NEUTROPHILS # (AUTO) 2.4 (2.1-6.9); NEUTROPHILS % 44.8 % (38.7-80.0); PLATELET COUNT 183 x10e3/uL (140-360); RED BLOOD COUNT 3.34 x10e6/uL (3.6-5.1); RED CELL DISTRIBUTION WIDTH 12.6 % (11.7-14.4); WHITE BLOOD COUNT 5.44 x10e3/uL (4.8-10.8)
[2024-03-06 08:42] LABS: ALBUMIN 2.7 g/dL (3.5-5.0); ALBUMIN/GLOBULIN RATIO 0.9 (0.8-2.0); ANION GAP 11.1 mmol/L (8-16); BILIRUBIN,TOTAL 0.3 mg/dL (0.2-1.2); CALCIUM 8.5 mg/dL (8.4-10.2); CREATININE, SERUM 0.9 mg/dL (0.57-1.11); MAGNESIUM 1.9 MG/DL (1.3-2.1); POTASSIUM 4.1 mmol/L (3.5-5.1); TOTAL PROTEIN 5.6 g/dL (6.5-8.1)
[2024-03-06] MEDS: LABETALOL HCL 5 MG/ML 20ML VIAL IV PRN (21:10)
[2024-03-07 03:19] VITALS: BP 135/73; PULSE 76; RESP 18; TEMP 98.2; O2SAT 99
[2024-03-07 08:00] VITALS: BP_SYST 135; BP_SYST 147; BP_DIAS 73; BP_DIAS 93; PULSE 74; PULSE 76; RESP 17; RESP 18; TEMP 98.1; TEMP 98.2; O2SAT 100; O2SAT 99
[2024-03-07 08:09] LABS: BASOPHILS % 0.4 % (0.0-1.0); EOSINOPHILS # (AUTO) 0.2 (0.0-0.4); EOSINOPHILS % 3.3 % (0.0-6.0); HEMATOCRIT 36.2 % (34.2-44.1); HEMOGLOBIN 10.9 g/dL (12.0-16.0); LYMPHOCYTES # (AUTO) 1.4 (1.0-3.2); LYMPHOCYTES % 26.5 % (18.0-39.1); MEAN CORPUSCULAR HEMOGLOBIN 29.7 pg (28-32); MEAN CORPUSCULAR HGB CONC 30.1 g/dL (31-35); MEAN CORPUSCULAR VOLUME 98.6 fL (81-99); MONOCYTES # (AUTO) 0.7 (0.2-0.8); MONOCYTES % 12.8 % (4.4-11.3); NEUTROPHILS # (AUTO) 3.1 (2.1-6.9); NEUTROPHILS % 56.8 % (38.7-80.0); PLATELET COUNT 190 x10e3/uL (140-360); RED BLOOD COUNT 3.67 x10e6/uL (3.6-5.1); RED CELL DISTRIBUTION WIDTH 12.5 % (11.7-14.4); WHITE BLOOD COUNT 5.39 x10e3/uL (4.8-10.8)
[2024-03-07 08:50] LABS: ANION GAP 12.1 mmol/L (8-16); CALCIUM 9.2 mg/dL (8.4-10.2); POTASSIUM 4.1 mmol/L (3.5-5.1)
[2024-03-07 09:09] LABS: FERRITIN 65.12 ng/mL (4.63-204.00)
[2024-03-07 12:00] VITALS: BP 164/92; PULSE 74; RESP 19; TEMP 98.1; O2SAT 100
[2024-03-07 13:59] LABS: FOLATE 8.2 ng/mL (7.0-15.4)
[2024-03-07] MEDS ORDERED: LANTUS 3ML100 UNITS/ SC (14:41)
[2024-03-07] MEDS ORDERED: LOPRESSOR25 MG PO (14:41)
== END 2024-03-07 16:00 | disposition home or self-care (01) | DRG 309 ==
LOC: ER 19:20 → ERHOLD 21:25 → ICU 23:55 → MED/SURG3 03-05 18:40
PROVIDERS: ADMIT Internal Medicine; ATTEND Internal Medicine
DX: I47.19 Other supraventricular tachycardia (principal); N17.9 Acute kidney failure, unspecified; E11.22 Type 2 diabetes mellitus with diabetic chronic kidney disease; E11.42 Type 2 diabetes mellitus with diabetic polyneuropathy; D53.9 Nutritional anemia, unspecified; I12.9 Hypertensive chronic kidney disease with stage 1 through stage 4 chronic kidney disease, or unspecified chronic kidney disease; N18.2 Chronic kidney disease, stage 2 (mild); E78.2 Mixed hyperlipidemia; K21.9 Gastro-esophageal reflux disease without esophagitis; E66.9 Obesity, unspecified; Z68.29 Body mass index [BMI] 29.0-29.9, adult; Z11.52 Encounter for screening for COVID-19; Z79.51 Long term (current) use of inhaled steroids; Z79.4 Long term (current) use of insulin; Z79.84 Long term (current) use of oral hypoglycemic drugs; Z79.82 Long term (current) use of aspirin; Z88.5 Allergy status to narcotic agent; Z91.041 Radiographic dye allergy status; Z83.3 Family history of diabetes mellitus; Z82.49 Family history of ischemic heart disease and other diseases of the circulatory system
CPT/HCPCS: 36415; 71045; 80048; 80053; 82550; 82607; 82728; 82746; 82948; 83036; 83540; 83690; 83735; 83880; 84443; 84466; 84484; 85025; 93005; 93306; 96372; 99284; J1650; J1815; J7030

== ENCOUNTER 2024-05-03 02:34 | Emergency (ER) | payer BC ==
[~2024-05-03] VITALS: Ht 170.2 cm; Wt 83.9 kg
[~2024-05-03 02:34] MED LIST changes: +ATORVASTATIN CA40 MG; +FARXIGA10 MG; +LANTUS 3ML100 UNITS/ SC; +LISINOPRIL5 MG PO; +LOPRESSOR25 MG PO; +MOUNJARO10 MG/0.5
[2024-05-03 02:35] VITALS: TEMP 98.8
[2024-05-03] MEDS: METOPROLOL TARTRATE 25 MG TAB PO ONE (03:08)
[2024-05-03] MEDS ORDERED: SODIUM CHLORIDE 0.9% 1000ML 1,000 ML IV SCH (04:15)
[2024-05-03 04:24] VITALS: BP 102/71; PULSE 130
[2024-05-03] MEDS: SODIUM CHLORIDE 0.9% 1000ML 1,000 ML IV ONE (04:24)
[2024-05-03] MEDS: METOPROLOL TARTRATE INJ 1 MG/ML VIAL IV ONE (04:24)
[2024-05-03 04:48] LABS: BASOPHILS % 0.5 % (0.0-1.0); EOSINOPHILS # (AUTO) 0.3 (0.0-0.4); EOSINOPHILS % 4.3 % (0.0-6.0); HEMATOCRIT 34.7 % (34.2-44.1); HEMOGLOBIN 11.1 g/dL (12.0-16.0); LYMPHOCYTES # (AUTO) 2.2 (1.0-3.2); LYMPHOCYTES % 33.2 % (18.0-39.1); MEAN CORPUSCULAR HEMOGLOBIN 29.6 pg (28-32); MEAN CORPUSCULAR VOLUME 92.5 fL (81-99); MONOCYTES # (AUTO) 0.8 (0.2-0.8); MONOCYTES % 11.9 % (4.4-11.3); NEUTROPHILS # (AUTO) 3.2 (2.1-6.9); NEUTROPHILS % 49.9 % (38.7-80.0); PLATELET COUNT 241 x10e3/uL (140-360); RED BLOOD COUNT 3.75 x10e6/uL (3.6-5.1); RED CELL DISTRIBUTION WIDTH 12.5 % (11.7-14.4); WHITE BLOOD COUNT 6.47 x10e3/uL (4.8-10.8)
[2024-05-03 05:00] VITALS: PULSE 115; RESP 16; O2SAT 99
[2024-05-03 05:02] LABS: ALBUMIN 3.3 g/dL (3.5-5.0); ANION GAP 12.3 mmol/L (8-16); BILIRUBIN,TOTAL 0.2 mg/dL (0.2-1.2); CALCIUM 8.8 mg/dL (8.4-10.2); CREATININE, SERUM 1.78 mg/dL (0.57-1.11); POTASSIUM 4.3 mmol/L (3.5-5.1); TOTAL PROTEIN 6.7 g/dL (6.5-8.1)
== END 2024-05-03 05:53 | disposition home or self-care (01) ==
LOC: ER 02:39
DX: R00.2 Palpitations (principal); R00.0 Tachycardia, unspecified; I10 Essential (primary) hypertension; E11.65 Type 2 diabetes mellitus with hyperglycemia; E78.5 Hyperlipidemia, unspecified; R94.31 Abnormal electrocardiogram [ECG] [EKG]
CPT/HCPCS: 36415; 71045; 80053; 84484; 85025; 93005; 99284; J7030

== ENCOUNTER 2024-10-31 17:23 | Emergency (ER) | payer BC ==
[~2024-10-31] VITALS: Ht 170.2 cm; Wt 76.2 kg
[2024-10-31 18:17] VITALS: PULSE 82; RESP 17; TEMP 98.4; O2SAT 98
[2024-10-31 20:35] VITALS: BP 176/92; PULSE 80; RESP 17; TEMP 98.3
== END 2024-10-31 20:43 | disposition home or self-care (01) ==
LOC: FSED 18:11
DX: R60.9 Edema, unspecified (principal); I10 Essential (primary) hypertension; E11.65 Type 2 diabetes mellitus with hyperglycemia; E78.5 Hyperlipidemia, unspecified
CPT/HCPCS: 71046; 80048; 80076; 83880; 84484; 85025; 85610; 93970; 93971; 99284